=== PATIENT | male | born 1970 | race Hispanic/Latino ===

== ENCOUNTER 2018-07-23 20:41 | Inpatient (IN) | payer MEDICARE, MEDICAID ==
[~2018-07-23] VITALS: Ht 167.6 cm; Wt 61.2 kg
[~2018-07-23 20:41] MED LIST: ACETAMINOPHEN325 M1 ORAL; ACETAMINOPHEN500 MG ORAL; ASCORBIC ACID500 MG ORAL; BACTRIM DS TAB1 EAC1 ORAL; BP MED PO; CALCIUM ACETAT667 MG PO; CEPHALEXIN500 MG ORAL; CIPROFLOXA250 MG/5 M PO; CIPROFLOXACIN250 MG PO; CIPROFLOXACIN500 M2 ORAL; CLONIDINE0.1 MG GT; CLONIDINE0.1 MG PO; CREON DR 24,001 EACH PO; DEXTROSE 50%-WA50 M1 IV; DOCUSATE SODIU100 MG ORAL; FLAGYL500 MG ORAL; FUROSEMIDE40 MG ORAL; HEPARIN1000 UNIT/ SUBQ; HUMALOG100 UNIT/4 SUBQ; HUMULIN 70100 UNIT/1 SUBQ; HUMULIN R100 UNIT/1 SUBQ; IMODIUM2 MG ORAL; KEFLEX500 MG ORAL; LABETALOL H5 MG/1 M1 PO; LABETALOL HCL300 MG ORAL; LANTUS SOL100 UNIT/1 SUBQ; MEROPENEM500 MG IVPB; METRONIDAZOLE500 MG ORAL; NORCO 5-325 TA1 EACH ORAL; NORMODYNE200 MG ORAL; NOVOLOG100 UNIT/3 SUBQ; NOVOLOG100 UNITS1 SUBQ; PHENERGAN25 M1 ORAL; PRO-AMATINE2.5 MG ORAL; QUESTRAN POWDER4 GM ORAL; REGLAN5 MG ORAL; RENVELA800 MG ORAL; ROBAXIN-750750 MG PO; SALINE 10ML FLU10 ML IVF; TYLENOL EXTRA500 MG ORAL; UNOBMED; VANCOMYCIN HCL1 G1 IV; ZINC SULFATE220 M1 ORAL; ZOFRAN4 MG ORAL; [UNRECOGNIZED DRUG - REMARK]; [UNRECOGNIZED DRUG - REMARK]
[2018-07-23 21:10] VITALS: BP 123/67
--- NOTE | 2018-07-23 21:38 | Emergency Room Report ---
History of Present Illness General Chief Complaint: Dizziness Present Illness HPI 48HM poor Chinese here for "dizziness" which is really only malaise. He is MWF dialysis and he missed last three dialysis appointments b/c "I didn't have transportation." There is no: chest pain, sob, vomiting, fever, abd pain, diarrhea, trauma. He says he gets dialysis at "[facility]" and dialysis doctor is Dr. Burton. He has LUE shunt. He was admitted here in August and during that admission he eloped. PMH: ESRD, dialysis, DM, htn heart dz., noncompliance Allergies: Coded Allergies: No Known Allergies (Unverified , 02/13/15) Nursing Documentation-PMH Hx Cardiac Problems: Yes Hx Hypertension: Yes Hx Pacemaker: No Hx Asthma: No Hx COPD: No Hx Diabetes: Yes Hx Cancer: No Hx Gastrointestinal Problems: No Hx Dialysis: Yes - TUES, THURS, SAT Hx Neurological Problems: No Hx Cerebrovascular Accident: No Hx Transient Ischemic Attacks: No Hx Seizures: No Hx Peripheral Neuropathy: Yes Hx Headaches: Yes Hx Numbness: Yes Review of Systems Constitutional: Reports: see HPI, malaise, weakness Eye: Reports: no symptoms ENT: Reports: no symptoms Respiratory: Reports: no symptoms Cardiovascular: Reports: no symptoms Gastrointestinal: Reports: no symptoms Genitourinary: Reports: no symptoms Musculoskeletal: Reports: no symptoms Skin: Reports: no symptoms Psychiatric: Reports: no symptoms Neurological: Reports: no symptoms Endocrine: Reports: no symptoms Hematologic/Lymphatic: Reports: no symptoms Allergic: Reports: no symptoms All Other Systems: negative except mentioned in HPI Physical Exam Vital Signs Date Time Temp Pulse Resp B/P (MAP) Pulse Ox O2 Delivery O2 Flow Rate FiO2 07/23/18 20:59 97.7 78 16 123/67 96 Room Air Sp02 EP Interpretation: reviewed General Appearance: thin, Chronically Ill Head: normocephalic, atraumatic Eyes: bilateral eye normal inspection, bilateral eye PERRL, bilateral eye EOMI ENT: normal ENT inspection, hearing grossly normal, normal pharynx, no angioedema, normal voice, moist mucus membranes Neck: normal inspection, full range of motion, supple, no meningismus, no bony tend Respiratory: normal inspection, lungs clear, normal breath sounds, no rhonchi, no respiratory distress, no retraction, no accessory muscle use, no wheezing Cardiovascular #1: normal inspection, regular rate, rhythm, no edema, systolic murmur Gastrointestinal: normal inspection, normal bowel sounds, non tender, soft, no mass, non-distended Musculoskeletal: gait/station normal, normal range of motion, other - LUE shunt ; normal thrill Neurologic: normal inspection, alert, oriented x3, responsive, motor strength/ tone normal Psychiatric: normal inspection, judgement/insight normal, memory normal Suicide Risk Assessment: Suicidal Ideation: No Had intent to initiate attempt: No Pt's plan for suicide attempt: No Has means to complete attempt: No Skin: normal inspection, normal color, no rash, warm/dry Medical Decision Making Diagnostic Impression: Primary Impression: Hyperkalemia Additional Impressions: ESRD (end stage renal disease) on dialysis Noncompliance ER Course The patient has normal vitals with HR 80, bp 123/67. He does not look acutely ill. Will check chemistries. Not surprisingly pt. has potassium 6.5 and creatinine 22. He is receiving IV calcium here. Pt. without EKG changes (except V3 t somewhat increased. QRS duration 88 ms, p waves ok) Can tolerate chronic hyperkalemia; Dr. Haines aware, dialysis when it can be arranged. EKG Diagnostic Results EKG Time: 22:28 EP Interpretation: NSR 79, normal QRS, p wave Rhythm: NSR ST Segments: no acute changes Rhythm Strip Diag. Results Rhythm Strip Time: 21:43 EP Interpretation: yes Rhythm: NSR Last Vital Signs Date Time Temp Pulse Resp B/P (MAP) Pulse Ox O2 Delivery O2 Flow Rate FiO2 07/23/18 20:59 97.7 78 16 123/67 96 Room Air Status: unchanged Disposition: ADMITTED INPATIENT Condition: Serious Patient Instructions: Dialysis Cleve Lynn M.D. Jul 23, 2018 21:38
[2018-07-23 22:05] LABS: BASOPHILS % (AUTO) 1.2 % (0.0-2.0); EOSINOPHILS % (AUTO) 2.4 % (0.0-3.0); HEMATOCRIT 32.9 % (42.0-52.0); HEMOGLOBIN 10.5 G/DL (14.2-18.0); LYMPHOCYTES % (AUTO) 20.6 % (20.0-45.0); MEAN CORPUSCULAR VOLUME 94 FL (80-99); MONOCYTES % (AUTO) 8.4 % (1.0-10.0); NEUTROPHILS % (AUTO) 67.4 % (45.0-75.0); PLATELET COUNT 191 K/UL (150-450); RED CELL DISTRIBUTION WIDTH 13.5 % (11.6-14.8); WHITE BLOOD COUNT 8.2 K/UL (4.8-10.8)
[2018-07-23 22:12] LABS: ANION GAP 25 mmol/L (5-15); BLOOD UREA NITROGEN 133 mg/dL (7-18); CALCIUM 7.2 MG/DL (8.5-10.1); CARBON DIOXIDE 11 MMOL/L (21-32); CHLORIDE 100 MMOL/L (98-107); CREATININE 22.8 MG/DL (0.55-1.30); SODIUM 135 MMOL/L (136-145)
[2018-07-23 22:15] LABS: POTASSIUM 6.5 MMOL/L (3.5-5.1)
[2018-07-23] MEDS ORDERED: Calcium Chloride 100mg/ml Vial IVP ONE (22:30)
[2018-07-23] MEDS ORDERED: Sodium Polystyrene Sulfonate 15gm Powder ORAL ONE (22:30)
[2018-07-23] MEDS ORDERED: Insulin Human Regular 100units/ml 3ml SUBQ ONE (22:30)
[2018-07-23 23:07] VITALS: BP 106/69
[2018-07-24 00:17] VITALS: BP 132/76
[2018-07-24 01:04] VITALS: BP 129/79
[2018-07-24 01:30] VITALS: BP 135/73
[2018-07-24] MEDS ORDERED: Acetaminophen 500mg (ES) tab ORAL PRN (02:30)
[2018-07-24] MEDS ORDERED: Docusate 100mg cap ORAL PRN (02:30)
[2018-07-24] MEDS ORDERED: TYLENOL EXTRA500 MG ORAL (02:36)
[2018-07-24] MEDS ORDERED: AMBIEN5 MG ORAL (03:29)
[2018-07-24] MEDS ORDERED: Zolpidem 5mg tab ORAL PRN (03:30)
[2018-07-24] MEDS ORDERED: NovoLOG Insulin Flexpen SUBQ SCH (06:30)
[2018-07-24] MEDS ORDERED: Ascorbic Acid 500mg tab ORAL SCH (09:00)
[2018-07-24] MEDS ORDERED: Zinc Sulfate 220mg cap ORAL SCH (09:00)
[2018-07-24] MEDS ORDERED: UNOBMED (11:58)
[2018-07-24] MEDS ORDERED: Heparin Sod 1000 units/ml 10ml IV ONE (22:30)
--- NOTE | 2018-07-26 13:25 | Discharge Summary ---
Discharge Summary Discharge Summary _ DATE OF ADMISSION: 07/23/2018 DATE OF DISCHARGE: 07/24/2018. Patient signed AGAINST MEDICAL ADVICE REASON FOR ADMISSION: 48 years old male with past medical history of end-stage renal disease, on hemodialysis, diabetes, peripheral neuropathy, presented to emergency room for evaluation due to generalized malaise. Apparently patient missed the last 3 hemodialysis sessions, claiming that he didn't have transportation . He denied chest pain, shortness of breath, nausea, vomiting, abdominal pain, diarrhea. Upon evaluation vital signs were stable. Laboratory workup revealed no leukocytosis, hemoglobin 10.5 ,hematocrit 32.9. Coagulation profile was stable. Chemistry revealed hyperkalemia with potassium 6.5. Renal parameters showed evidence of uremia with BUN 133 creatinine 22.8. Blood glucose 189. Patient admitted with diagnoses of hyperkalemia, uremia likely due to noncompliance ,end-stage renal disease/ on hemodialysis with missing 3 consecutive dialysis, hypertension, diabetes mellitus. anemia of chronic kidney disease. HOSPITAL COURSE: Patient admitted to telemetry floor. Hyperkalemia was treated with Kayexalate. Hemodialysis was ordered with close monitoring of volumes and cardiorenal parameters. Blood sugar was managed with sliding scale of insulin. Blood pressure was managed with antihypertensive regimen / beta amy. Bowel regimen instituted. Pain management was addressed . Patient decided to leave against medical advice. The risks and consequences of signing AGAINST MEDICAL ADVICE were discussed with patient in detail. Patient verbalized understanding, nevertheless signed AMA form and left. FINAL DIAGNOSES: Hyperkalemia Uremia likely due to noncompliance End-stage renal disease, on hemodialysis Hypertension Diabetes mellitus Anemia of chronic kidney disease I have been assigned to dictate discharge summary for this account. I was not involved in the patient's management. Anita Brady NP Jul 26, 2018 13:25
== END 2018-07-24 04:15 | disposition left against medical advice (07) | DRG 640 ==
LOC: EMR 21:48 → EDBEDREQ 22:21 → MERGE 23:26 → 2E 23:26 → EDBEDREQ 07-24 00:37
DX: E87.5 Hyperkalemia (principal); N18.6 End stage renal disease; I13.11 Hypertensive heart and chronic kidney disease without heart failure, with stage 5 chronic kidney disease, or end stage renal disease; E11.22 Type 2 diabetes mellitus with diabetic chronic kidney disease; Z99.2 Dependence on renal dialysis; Z91.15 Patient's noncompliance with renal dialysis; G62.9 Polyneuropathy, unspecified; D63.1 Anemia in chronic kidney disease; Z79.4 Long term (current) use of insulin
CPT/HCPCS: 36415; 80048; 82962; 85025; 85610; 96374; 96375; 99285; J1815; J2405

== ENCOUNTER 2018-07-24 11:23 | Emergency (ER) | payer MEDICARE, MEDICAID ==
[~2018-07-24] VITALS: Ht 165.1 cm; Wt 56.7 kg
[~2018-07-24 11:23] MED LIST changes: +AMBIEN5 MG ORAL
[2018-07-24 11:38] VITALS: BP 118/58
[2018-07-24] MEDS ORDERED: UNOBMED (11:58)
[2018-07-24] MEDS ORDERED: Sodium Polystyrene Sulfonate 15gm Powder ORAL ONE (12:00)
[2018-07-24] MEDS ORDERED: Calcium Gluconate 1gm/10ml vial IVP ONE (12:00)
--- NOTE | 2018-07-24 12:01 | Emergency Room Report ---
History of Present Illness General Chief Complaint: Generalized Weakness Source: Patient Present Illness HPI Patient presents with generalized weakness. He's missed dialysis all week. He went to dialysis today but they refused to dialyze him and told him to come to the emergency department. He denies any chest pain or palpitations. He feels decreased appetite and some weakness generalized. No palpitations. He does not make urine. Patient was admitted yesterday, but signed out AMA. He received calcium, insulin, D50 and Kayexelate. He was supposed to get dialysis this AM. No fevers, chills, headache, NVD, bleeding, joint pain. No dyspnea/cough. Not drinking beer today. Not suicidal. Allergies: Coded Allergies: No Known Allergies (Unverified , 07/24/18) Patient History Past Medical History: see triage record Past Surgical History: other - fistula L forearm, R little toe amputation Social History: Reports: alcohol use - beer; Denies: smoking, drug use Social History Narrative with family Reviewed Nursing Documentation: PMH: Agreed; PSxH: Agreed Nursing Documentation-PMH Past Medical History: No History, Except For Hx Cardiac Problems: Yes Hx Hypertension: Yes Hx Pacemaker: No Hx Asthma: No Hx COPD: No Hx Diabetes: Yes Hx Cancer: No Hx Gastrointestinal Problems: No Hx Dialysis: Yes - , , WED Hx Neurological Problems: No Hx Cerebrovascular Accident: No Hx Transient Ischemic Attacks: No Hx Seizures: No Hx Peripheral Neuropathy: Yes Hx Headaches: Yes Hx Numbness: Yes Review of Systems All Other Systems: negative except mentioned in HPI Physical Exam Vital Signs Date Time Temp Pulse Resp B/P (MAP) Pulse Ox O2 Delivery O2 Flow Rate FiO2 07/24/18 11:28 97.9 88 16 123/69 96 Room Air Sp02 EP Interpretation: reviewed, normal General Appearance: no apparent distress, Chronically Ill Head: normocephalic Eyes: bilateral eye PERRL, bilateral eye conjunctivae pale ENT: moist mucus membranes Neck: supple Respiratory: no respiratory distress, decreased breath sounds, rales Cardiovascular #1: regular rate, rhythm, JVD - and distended scalp veins Cardiovascular #2: 2+ radial (L) - fistula forearm good thrill Gastrointestinal: normal inspection, normal bowel sounds, non tender, no mass, non-distended Musculoskeletal: back normal, gait/station normal, normal range of motion, no calf tenderness Neurologic: alert, oriented x3, motor strength/tone normal, DTRs symmetric, sensory intact, cerebellar normal, normal gait, speech normal Psychiatric: mood/affect normal Skin: normal inspection, warm/dry, other - sallo Medical Decision Making Diagnostic Impression: Primary Impression: Hyperkalemia Additional Impressions: ESRD (end stage renal disease) on dialysis Non-compliance Metabolic acidosis DM (diabetes mellitus) Qualified Codes: E11.8 - Type 2 diabetes mellitus with unspecified complications; 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 DDX; hyperkalemia, acidosis, AMI, CHF/pulmonary edema amongst others. Evaluation with EKG, CXR, labs. High probability of continued hyperkalemia, will begin treatment with calcium and Kayexelate. EKG no injury, but slight peaked T waves. CXR pulm HTN. Labs with high potassium, low bicarb and CRF with elevated BUN. Glucose 172. Admit telemetry for dialysis. Discussed with Dr. Varner. Patient refusing to stay in the hospital. He understands he might . States he doesn't want to stay in hospital and wants to follow up in his MD's office tomorrow. (Consideration of sedation and restraints, but OX3 at this time and understands potential consequences of leaving.) Patient left ED AMA. Call Dr. Varner again. Laboratory Tests Test 07/24/18 12:00 White Blood Count 8.1 K/UL (4.8-10.8) Red Blood Count 3.20 M/UL (4.70-6.10) L Hemoglobin 9.5 G/DL (14.2-18.0) L Hematocrit 30.0 % (42.0-52.0) L Mean Corpuscular Volume 93 FL (80-99) Mean Corpuscular Hemoglobin 29.6 PG (27.0-31.0) Mean Corpuscular Hemoglobin Concent 31.7 G/DL (32.0-36.0) L Red Cell Distribution Width 13.3 % (11.6-14.8) Platelet Count 159 K/UL (150-450) Mean Platelet Volume 7.1 FL (6.5-10.1) Neutrophils (%) (Auto) 81.2 % (45.0-75.0) H Lymphocytes (%) (Auto) 10.7 % (20.0-45.0) L Monocytes (%) (Auto) 7.0 % (1.0-10.0) Eosinophils (%) (Auto) 0.4 % (0.0-3.0) Basophils (%) (Auto) 0.7 % (0.0-2.0) Prothrombin Time 10.9 SEC (9.30-11.50) Prothrombin Time INR 1.0 (0.9-1.1) PTT 34 SEC (23-33) H Sodium Level 138 MMOL/L (136-145) Potassium Level 6.1 MMOL/L (3.5-5.1) *H Chloride Level 101 MMOL/L (98-107) Carbon Dioxide Level 9 MMOL/L (21-32) *L Anion Gap 28 mmol/L (5-15) H Blood Urea Nitrogen 135 mg/dL (7-18) H Creatinine 23.2 MG/DL (0.55-1.30) H Estimate Glomerular Filtration Rate 2.1 mL/min (>60) Glucose Level 172 MG/DL (74-106) H Calcium Level 7.5 MG/DL (8.5-10.1) L Total Bilirubin 0.5 MG/DL (0.2-1.0) Aspartate Amino Transferase (AST) 9 U/L (15-37) L Alanine Aminotransferase (ALT) 33 U/L (12-78) Alkaline Phosphatase 155 U/L (46-116) H Total Creatine Kinase 287 U/L (26-308) Troponin I 0.006 ng/mL (0.000-0.056) Pro-B-Type Natriuretic Peptide > 08192 pg/mL (0-125) H Total Protein 8.5 G/DL (6.4-8.2) H Albumin 3.3 G/DL (3.4-5.0) L Globulin 5.2 g/dL Albumin/Globulin Ratio 0.6 (1.0-2.7) L Serum Alcohol < 3 mg/dL EKG Diagnostic Results Rate: normal Rhythm: NSR ST Segments: no acute changes - slight peaked T waves Rhythm Strip Diag. Results EP Interpretation: yes Rhythm: NSR, no PVC's, no ectopy Chest X-Ray Diagnostic Results Chest X-Ray Diagnostic Results : Chest X-Ray Ordered: Yes # of Views/Limited/Complete: 1 View Indication: Other EP Interpretation: Yes Interpretation: no effusion, no pneumothorax, other - pulm htn/chf Impression: Other Electronically Signed by: Nile Frazier MD Last Vital Signs Date Time Temp Pulse Resp B/P (MAP) Pulse Ox O2 Delivery O2 Flow Rate FiO2 07/24/18 14:30 98.5 76 17 132/80 99 Room Air Status: improved Disposition: AGAINST MEDICAL ADVICE Condition: Serious Nile Frazier MD Jul 24, 2018 12:01
[2018-07-24 12:24] LABS: BASOPHILS % (AUTO) 0.7 % (0.0-2.0); EOSINOPHILS % (AUTO) 0.4 % (0.0-3.0); HEMOGLOBIN 9.5 G/DL (14.2-18.0); LYMPHOCYTES % (AUTO) 10.7 % (20.0-45.0); MEAN CORPUSCULAR VOLUME 93 FL (80-99); NEUTROPHILS % (AUTO) 81.2 % (45.0-75.0); PLATELET COUNT 159 K/UL (150-450); RED CELL DISTRIBUTION WIDTH 13.3 % (11.6-14.8); WHITE BLOOD COUNT 8.1 K/UL (4.8-10.8)
[2018-07-24 12:47] LABS: ALANINE AMINOTRANSFERASE 33 U/L (12-78); ALBUMIN 3.3 G/DL (3.4-5.0); ALBUMIN/GLOBULIN RATIO 0.6 (1.0-2.7); ALKALINE PHOSPHATASE 155 U/L (46-116); ANION GAP 28 mmol/L (5-15); ASPARTATE AMINO TRANSFERASE 9 U/L (15-37); BILIRUBIN,TOTAL 0.5 MG/DL (0.2-1.0); BLOOD UREA NITROGEN 135 mg/dL (7-18); CALCIUM 7.5 MG/DL (8.5-10.1); CHLORIDE 101 MMOL/L (98-107); CREATINE KINASE 287 U/L (26-308); CREATININE 23.2 MG/DL (0.55-1.30); SODIUM 138 MMOL/L (136-145)
[2018-07-24 13:03] LABS: POTASSIUM 6.1 MMOL/L (3.5-5.1)
[2018-07-24 13:04] LABS: CARBON DIOXIDE 9 MMOL/L (21-32)
[2018-07-24 13:40] VITALS: BP 125/71
[2018-07-24 14:30] VITALS: BP 132/80
[2018-07-24] MEDS ORDERED: Nitroglycerin Subl 0.4mg tab SL PRN (17:30)
[2018-07-24] MEDS ORDERED: Milk of Magnesia 30ml Ud ORAL PRN (17:30)
[2018-07-24] MEDS ORDERED: Acetaminophen 650 MG SUPP RECTAL PRN (17:30)
[2018-07-24] MEDS ORDERED: Albuterol/Ipratropium 3ml neb HHN PRN (17:30)
[2018-07-24] MEDS ORDERED: Docusate 100mg cap ORAL SCH (21:00)
[2018-07-24] MEDS ORDERED: Heparin 5000 units/ml inj SUBQ SCH (22:00)
[2018-07-25] MEDS ORDERED: Heparin Sod 1000 units/ml 10ml IV PRN (06:00)
--- NOTE | 2018-07-25 09:14 | Diagnostic Imaging Report ---
Indication: Chest pain Technique: One view of the chest Comparison: 07/05/2016 Findings: The heart is borderline enlarged. There is perihilar interstitial edema and enlargement of the central pulmonary vessels. The pleural spaces are grossly clear. No focal airspace consolidation Impression: Borderline cardiomegaly with perihilar interstitial edema
== END 2018-07-24 14:30 | disposition other institution (70) ==
LOC: EDBEDREQ 12:06 → EMR 12:10 → MERGE 12:10 → EDBEDREQ 14:13 → EMR 14:30 → CANBEDREQ 14:46
DX: E87.5 Hyperkalemia (principal); E87.2 Acidosis; I12.0 Hypertensive chronic kidney disease with stage 5 chronic kidney disease or end stage renal disease; E11.22 Type 2 diabetes mellitus with diabetic chronic kidney disease; N18.6 End stage renal disease; Z99.2 Dependence on renal dialysis; Z91.15 Patient's noncompliance with renal dialysis
CPT/HCPCS: 36415; 71045; 80053; 82550; 82962; 83880; 84484; 85025; 85610; 85730; 87081; 93005; 96374; 99284; G0480; J0610; 80329

== ENCOUNTER 2018-07-25 01:00 | Inpatient (IN) | payer MEDICARE, MEDICAID ==
[~2018-07-25] VITALS: Ht 165.1 cm; Wt 56.7 kg
--- NOTE | 2018-07-25 01:22 | Emergency Room Report ---
History of Present Illness General Chief Complaint: Vomiting Source: Patient, Medical Record Present Illness HPI Is a 48-year-old male with history of hypertension, renal failure on hemodialysis. He presents with chief complaint of weakness and vomiting. He has miss over a week worth of dialysis. He was here yesterday and was admitted but signed out AMA from the ER. He claimed that he cant go dialysis because of transportation. Last Wednesday it was raining. Patient denies any fever chills. No chest pain. No vomiting. Has weakness. Allergies: Coded Allergies: No Known Allergies (Unverified , 07/24/18) Patient History Past Medical History: see triage record, old chart reviewed, HTN, renal disease , dialysis Past Surgical History: other Pertinent Family History: none Social History: Denies: smoking Immunizations: other Reviewed Nursing Documentation: PMH: Agreed; PSxH: Agreed Nursing Documentation-PMH Past Medical History: No History, Except For Hx Cardiac Problems: Yes Hx Hypertension: Yes Hx Pacemaker: No Hx Asthma: No Hx COPD: No Hx Diabetes: Yes Hx Cancer: No Hx Gastrointestinal Problems: No Hx Dialysis: Yes - , , WED Hx Neurological Problems: No Hx Cerebrovascular Accident: No Hx Transient Ischemic Attacks: No Hx Seizures: No Hx Peripheral Neuropathy: Yes Hx Headaches: Yes Hx Numbness: Yes Review of Systems Constitutional: Reports: malaise, weakness Eye: Denies: eye pain, blurred vision ENT: Denies: ear pain, nose congestion, throat swelling Respiratory: Denies: cough, shortness of breath Cardiovascular: Denies: chest pain, palpitations Gastrointestinal: Denies: abdominal pain, diarrhea, nausea, vomiting Musculoskeletal: Denies: back pain, joint pain Skin: Denies: rash Neurological: Denies: headache, numbness Endocrine: Denies: increased thirst, increased urine Hematologic/Lymphatic: Denies: easy bruising All Other Systems: negative except mentioned in HPI Physical Exam Vital Signs Date Time Temp Pulse Resp B/P (MAP) Pulse Ox O2 Delivery O2 Flow Rate FiO2 07/25/18 01:03 98.8 88 16 117/67 96 Room Air vitals unremarkable Sp02 EP Interpretation: reviewed, normal General Appearance: well appearing, no apparent distress, alert Head: normocephalic, atraumatic Eyes: bilateral eye PERRL, bilateral eye EOMI ENT: hearing grossly normal, normal pharynx Neck: full range of motion, supple, no meningismus Respiratory: chest non-tender, lungs clear, normal breath sounds Cardiovascular #1: regular rate, rhythm, no murmur Gastrointestinal: normal bowel sounds, non tender, no mass, no organomegaly, no bruit, non-distended Musculoskeletal: back normal, gait/station normal, normal range of motion Psychiatric: mood/affect normal Skin: warm/dry Medical Decision Making Diagnostic Impression: Primary Impression: Uremia Additional Impressions: Non-compliance Metabolic acidosis ESRD on hemodialysis ER Course Patient presents with severe uremia secondary to his renal failure. Is also secondary to is noncompliant. Luckily, blood pressure stable and he is not hyperkalemic. Also not hypoxic. I discussed the case with Dr. Varner who will admit. Lab Results Impression labs with severe metabolic acidosis and uremia EKG Diagnostic Results Rate: normal Rhythm: NSR ST Segments: other - Nonspecific changes Rhythm Strip Diag. Results Rhythm Strip Time: 01:21 EP Interpretation: yes Rate: 80 Rhythm: NSR, no PVC's, no ectopy Chest X-Ray Diagnostic Results Chest X-Ray Diagnostic Results : Chest X-Ray Ordered: Yes # of Views/Limited/Complete: 1 View Indication: Shortness of Breath EP Interpretation: Yes Interpretation: no consolidation, no pneumothorax, other - CM with vasc congestion Impression: Other - CM with chf Electronically Signed by: Denilson Martin MD Last Vital Signs Date Time Temp Pulse Resp B/P (MAP) Pulse Ox O2 Delivery O2 Flow Rate FiO2 07/25/18 01:03 98.8 88 16 117/67 96 Room Air Status: improved Disposition: ADMITTED INPATIENT Condition: Serious Denilson Martin MD Jul 25, 2018 01:22
[2018-07-25 01:31] LABS: BASOPHILS % (AUTO) 0.9 % (0.0-2.0); HEMATOCRIT 29.2 % (42.0-52.0); HEMOGLOBIN 9.3 G/DL (14.2-18.0); LYMPHOCYTES % (AUTO) 10.6 % (20.0-45.0); MEAN CORPUSCULAR VOLUME 93 FL (80-99); MONOCYTES % (AUTO) 6.8 % (1.0-10.0); NEUTROPHILS % (AUTO) 81.8 % (45.0-75.0); PLATELET COUNT 163 K/UL (150-450); RED BLOOD COUNT 3.14 M/UL (4.70-6.10); RED CELL DISTRIBUTION WIDTH 13.6 % (11.6-14.8); WHITE BLOOD COUNT 9.3 K/UL (4.8-10.8)
[2018-07-25 01:46] LABS: ANION GAP 29 mmol/L (5-15); BLOOD UREA NITROGEN 137 mg/dL (7-18); CALCIUM 6.9 MG/DL (8.5-10.1); CARBON DIOXIDE 11 MMOL/L (21-32); CHLORIDE 100 MMOL/L (98-107); CREATININE 26.1 MG/DL (0.55-1.30); POTASSIUM 4.7 MMOL/L (3.5-5.1); SODIUM 140 MMOL/L (136-145)
[2018-07-25 01:59] LABS: ALANINE AMINOTRANSFERASE 30 U/L (12-78); ALBUMIN 3.3 G/DL (3.4-5.0); ALBUMIN/GLOBULIN RATIO 0.7 (1.0-2.7); ALKALINE PHOSPHATASE 155 U/L (46-116); ASPARTATE AMINO TRANSFERASE 7 U/L (15-37); BILIRUBIN,TOTAL 0.6 MG/DL (0.2-1.0); CREATINE KINASE 285 U/L (26-308)
[2018-07-25 02:15] VITALS: BP 122/66
[2018-07-25] MEDS ORDERED: Docusate 100mg cap ORAL PRN (05:45)
[2018-07-25] MEDS ORDERED: Zolpidem 5mg tab ORAL PRN (05:45)
[2018-07-25 08:00] VITALS: BP 109/54
[2018-07-25] MEDS: NovoLOG Insulin Flexpen SUBQ SCH ×4 (08:18→20:50)
[2018-07-25] MEDS: Ascorbic Acid 500mg tab ORAL SCH (09:00)
[2018-07-25] MEDS: Zinc Sulfate 220mg cap ORAL SCH (09:00)
--- NOTE | 2018-07-25 11:00 | Diagnostic Imaging Report ---
Indication: Shortness of breath Technique: One view of the chest Comparison: 07/24/2018 Findings: The heart is borderline enlarged. Again demonstrated is bilateral interstitial and airspace edema, which appears slightly worse than on the prior study. There is slight blunting of the right costophrenic sulcus, could indicate a small pleural effusion. The left pleural space is grossly clear. Impression: Worsening bilateral interstitial and airspace edema versus infiltrates, over one
[2018-07-25 12:02] VITALS: BP 147/74
--- NOTE | 2018-07-25 15:00 | History and Physical Report ---
DATE OF ADMISSION: 07/25/2018 CHIEF COMPLAINT: Shortness of breath. HISTORY OF PRESENT ILLNESS: This is a 48-year-old male, who is extremely noncompliant with his outpatient dialysis therapy. The patient missed by now almost 2 weeks of hemodialysis therapy. The patient was supposed to go to this hospital to be admitted. He did go to the emergency department. He was admitted and then left against medical advice. We called him. He was admitted again and left against medical advice, and this is the third time in succession that the patient is admitted and eventually he is getting his dialysis now at the time of dictation. The patient does not give a reasonable explanation of why he is doing it. PAST MEDICAL HISTORY: 1. End-stage renal failure due to diabetic nephropathy. 2. Type 2 diabetes mellitus. 3. 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 4. Orthostatic hypotension due to diabetic autonomic insufficiency. 5. History of acute osteomyelitis, right foot. 6. Anemia of chronic kidney disease. 7. History of noncompliance. 8. Diabetic gastroparesis. 9. Severe secondary hyperparathyroidism. HOME MEDICATIONS: Tylenol p.r.n., ascorbic acid, PhosLo, clonidine p.r.n., sodium docusate, NovoLog before meals, Lantus, labetalol, pancreatic enzymes, Reglan, Flagyl, midodrine, Zofran, zinc sulfate. ALLERGIES: No known drug allergies. FAMILY HISTORY: Unremarkable. SOCIAL HISTORY: The patient lives at home with his family. HABITS: He is nonsmoker and nondrinker. There is no history of illicit drug abuse. REVIEW OF SYSTEMS: HEENT: He is almost legally blind. ENDOCRINE: Significant for multiorgan type 2 diabetes mellitus with diabetic retinopathy, neuropathy, nephropathy, gastroparesis, vasculopathy. CARDIOVASCULAR: Denies chest pain or palpitations. GENITOURINARY: He has nocturia times 2-3. NEUROLOGICAL: He has severe peripheral neuropathy. There is no history of stroke. PHYSICAL EXAMINATION: GENERAL: This is a middle-aged male, who looks older than his age. The patient looks chronically ill and cachectic. VITAL SIGNS: Blood pressure 109/54, pulse 83, respirations 19, temperature 98.3. HEENT: Head is normocephalic and atraumatic. He has very poor vision. NECK: Supple. Trachea midline. There is no lymphadenopathy or thyromegaly. LUNGS: Clear to auscultation and percussion. HEART: Regular rate and rhythm. He has grade 2 systolic ejection murmur. ABDOMEN: Soft and nontender. Bowel sounds were active. EXTREMITIES: No clubbing, cyanosis, or edema. He has a left upper arm AV fistula. NEUROLOGIC: He is alert and oriented x4. Cranial nerves II through XII intact. LABORATORY AND ANCILLARY DATA: CBC, hematocrit 29.2, otherwise within normal limits. Serum chemistry, electrolytes within normal limits. CO2 level 11, very low. BUN 137, creatinine 26.1, glucose 193, alkaline phosphatase 155. ASSESSMENT: 1. Uremia due to noncompliance. 2. End-stage renal failure due to diabetic nephropathy. 3. Type 2 diabetes mellitus. 4. 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 5. Orthostatic hypotension due to diabetic autonomic insufficiency. 6. History of acute osteomyelitis, right foot. 7. Anemia of chronic kidney disease. 8. History of noncompliance. 9. Diabetic gastroparesis. 10. Severe secondary hyperparathyroidism. PLAN: 1. Wyax-ly-tprd long hemodialysis sessions. 2. Obtain psychiatric evaluation to rule out depression. Ann Varner M.D. DR: Swapnil JOB#: [id number] CC:
[2018-07-25 16:00] VITALS: BP 137/69
[2018-07-25 20:00] VITALS: BP 116/65
--- NOTE | 2018-07-25 22:05 | Consultation ---
History of Present Illness General Chief Complaint: Vomiting Present Illness HPI 48-year-old male, who is noncompliant with his outpatient dialysis therapy. the pt is mostly sleep during the day. the pt was Allergies: Coded Allergies: No Known Allergies (Unverified , 07/24/18) Medication History Scheduled Ascorbic Acid* (Ascorbic Acid*), 500 MG ORAL DAILY, (Reported) Ciprofloxacin Hcl* (Ciprofloxacin Hcl*), 500 MG ORAL Q12H Clonidine HCl (Clonidine HCl), 0.1 MG PO Q6HR, (Reported) Insulin Glargine (Lantus), 10 SUBQ BEDTIME, (Reported) Insulin Lispro (Humalog), 10 SUBQ BID, (Reported) Insulin Lispro (Humalog), 10 SUBQ BID, (Reported) Labetalol Hcl* (Normodyne*), 300 MG ORAL EVERY 12 HOURS, (Reported) Lipase/Protease/Amylase (Creon Dr 24,000 Units Capsule), 2 EACH PO TID, ( Reported) Metronidazole* (Flagyl*), 500 MG ORAL Q8HR, (Reported) Midodrine (Midodrine HCl), Unknown Dose ORAL BID, (Reported) Zinc Sulfate (Zinc Sulfate*), 220 MG ORAL DAILY, (Reported) Scheduled PRN Acetaminophen* (Tylenol Extra Strength*), 500 MG ORAL Q6H PRN for Mild Pain/ Temp > 100.5, (Reported) Clonidine HCl (Clonidine HCl), 0.1 MG GT Q6HR PRN for For High Blood Pressure, ( Reported) Docusate Sodium* (Docusate Sodium*), 100 MG ORAL Q12HR PRN for Constipation, ( Reported) Insulin Aspart* (Novolog*), 0 SUBQ BEFORE MEALS AND HS PRN for Per rx protocol, (Reported) Metoclopramide Hcl* (Reglan*), 5 MG ORAL EVERY 6 HOURS PRN for nausea vomiting Ondansetron (Zofran), 4 MG ORAL Q6H PRN for Nausea & Vomiting Zolpidem Tartrate* (Ambien*), 5 MG ORAL BEDTIME PRN for Insomnia, (Reported) Miscellaneous Medications Calcium Acetate (Calcium Acetate), 2,001 MG PO, (Reported) Unable to Obtain Medications (Unable To Obtain Meds), (Reported) ["BP pill"], Unknown Dose, (Reported) ["insulin"], Unknown Dose, (Reported) Patient History Healthcare decision maker Resuscitation status Advanced Directive on File No Physical Exam Last 24 Hour Vital Signs Date Time Temp Pulse Resp B/P (MAP) Pulse Ox O2 Delivery O2 Flow Rate FiO2 07/25/18 21:00 Room Air 07/25/18 20:51 92 116/65 07/25/18 20:00 99.1 91 20 116/65 (82) 93 07/25/18 20:00 92 07/25/18 17:04 137/69 07/25/18 16:00 98.1 94 19 137/69 (91) 94 07/25/18 15:20 91 07/25/18 12:02 97.7 87 20 147/74 (98) 98 07/25/18 11:45 147/74 07/25/18 11:43 88 07/25/18 09:00 83 109/54 07/25/18 09:00 Room Air 07/25/18 08:45 82 07/25/18 08:00 98.3 83 19 109/54 (72) 92 07/25/18 06:34 122/66 07/25/18 04:00 Room Air 07/25/18 04:00 84 07/25/18 03:35 98.8 87 16 122/66 96 Room Air 07/25/18 02:15 98.8 87 16 122/66 96 Room Air 07/25/18 01:15 88 16 Room Air 07/25/18 01:03 98.8 88 16 117/67 96 Room Air Intake and Output 07/24/18 07/25/18 19:00 07:00 Intake Total 100 ml Output Total 100 ml Balance 0 ml Intake Oral 100 ml Output Emesis 100 ml Laboratory Tests Test 07/25/18 01:15 White Blood Count 9.3 K/UL (4.8-10.8) Red Blood Count 3.14 M/UL (4.70-6.10) L Hemoglobin 9.3 G/DL (14.2-18.0) L Hematocrit 29.2 % (42.0-52.0) L Mean Corpuscular Volume 93 FL (80-99) Mean Corpuscular Hemoglobin 29.7 PG (27.0-31.0) Mean Corpuscular Hemoglobin Concent 31.9 G/DL (32.0-36.0) L Red Cell Distribution Width 13.6 % (11.6-14.8) Platelet Count 163 K/UL (150-450) Mean Platelet Volume 7.9 FL (6.5-10.1) Neutrophils (%) (Auto) 81.8 % (45.0-75.0) H Lymphocytes (%) (Auto) 10.6 % (20.0-45.0) L Monocytes (%) (Auto) 6.8 % (1.0-10.0) Eosinophils (%) (Auto) 0.0 % (0.0-3.0) Basophils (%) (Auto) 0.9 % (0.0-2.0) Sodium Level 140 MMOL/L (136-145) Potassium Level 4.7 MMOL/L (3.5-5.1) Chloride Level 100 MMOL/L (98-107) Carbon Dioxide Level 11 MMOL/L (21-32) L Anion Gap 29 mmol/L (5-15) H Blood Urea Nitrogen 137 mg/dL (7-18) H Creatinine 26.1 MG/DL (0.55-1.30) H Estimat Glomerular Filtration Rate 1.9 mL/min (>60) Glucose Level 193 MG/DL (74-106) H Hemoglobin A1c 5.3 % (4.3-6.0) Calcium Level 6.9 MG/DL (8.5-10.1) L Total Bilirubin 0.6 MG/DL (0.2-1.0) Aspartate Amino Transf (AST/SGOT) 7 U/L (15-37) L Alanine Aminotransferase (ALT/SGPT) 30 U/L (12-78) Alkaline Phosphatase 155 U/L (46-116) H Total Creatine Kinase 285 U/L (26-308) Creatine Kinase MB 9.0 NG/ML (0.0-3.6) H Creatine Kinase MB Relative Index 3.1 Troponin I 0.008 ng/mL (0.000-0.056) Total Protein 8.3 G/DL (6.4-8.2) H Albumin 3.3 G/DL (3.4-5.0) L Globulin 5.0 g/dL Albumin/Globulin Ratio 0.7 (1.0-2.7) L Microbiology Date/Time Source Procedure Growth Status 07/25/18 02:45 Rectum Received Height (Feet): 5 Height (Inches): 5.00 Weight (Pounds): 130 Medications Current Medications Medications (Trade) Dose Ordered Sig/Juan Route PRN Reason Start Time Stop Time Status Last Admin Dose Admin Acetaminophen (Tylenol) 500 mg Q6H PRN ORAL Mild Pain/Temp > 100.5 07/25/18 05:45 08/24/18 05:44 Ascorbic Acid (Vitamin C) 500 mg DAILY ORAL 07/25/18 09:00 08/24/18 08:59 Cinacalcet (Sensipar) 60 mg DAILY ORAL 07/26/18 09:00 08/25/18 08:59 Clonidine HCl (Catapres Tab) 0.1 mg Q6H PRN ORAL For High Blood Pressure 07/25/18 06:30 08/24/18 06:29 Clonidine HCl (Catapres Tab) 0.1 mg Q6HR ORAL 07/25/18 06:00 08/24/18 05:59 07/25/18 17:04 Dextrose (Dextrose 50%) 25 ml Q30M PRN IV Hypoglycemia 07/25/18 05:45 08/24/18 05:44 Dextrose (Dextrose 50%) 50 ml Q30M PRN IV Hypoglycemia 07/25/18 05:45 08/24/18 05:44 Docusate Sodium (Colace) 100 mg Q12H PRN ORAL Constipation 07/25/18 05:45 08/24/18 05:44 Heparin Sodium (Porcine) (Heparin Sod 1000 units/ml 10ml) 2,000 unit ONCE IV 07/26/18 07:15 07/26/18 23:59 Heparin Sodium (Porcine) (Heparin Sod 1000 units/ml 10ml) 2,000 unit ONCE IV 07/26/18 09:30 07/31/18 23:59 Insulin Aspart (NovoLOG) BEFORE MEALS AND HS SUBQ 07/25/18 06:30 08/24/18 06:29 07/25/18 08:18 Labetalol HCl (Normodyne) 300 mg EVERY 12 HOURS ORAL 07/25/18 09:00 08/24/18 08:59 Metoclopramide HCl (Reglan) 5 mg Q6H PRN ORAL nausea vomiting 07/25/18 05:45 08/24/18 05:44 07/25/18 20:51 Ondansetron HCl (Zofran) 4 mg Q6H PRN ORAL Nausea & Vomiting 07/25/18 05:45 08/24/18 05:44 07/25/18 16:12 Sodium Chloride 1,000 ml @ 500 mls/hr Q2H PRN IVLG sbp<90 during hd 07/26/18 07:02 07/26/18 23:59 Sodium Chloride 1,000 ml @ 500 mls/hr Q2H PRN IVLG sbp<90 during hd 07/26/18 09:27 07/26/18 23:59 Zinc Sulfate (Zinc Sulfate) 220 mg DAILY ORAL 07/25/18 09:00 08/24/18 08:59 Zolpidem Tartrate (Ambien) 5 mg BEDTIME PRN ORAL Insomnia 07/25/18 05:45 08/01/18 05:44 Bayron Tim MD Jul 25, 2018 22:05
[2018-07-26] VITALS: BP 149/60
[2018-07-26] MEDS: Acetaminophen 500mg (ES) tab ORAL PRN ×2 (00:49→20:08)
[2018-07-26 04:00] VITALS: BP 130/69
[2018-07-26] MEDS: NovoLOG Insulin Flexpen SUBQ SCH ×4 (06:29→21:00)
[2018-07-26 07:07] LABS: BASOPHILS % (AUTO) 0.5 % (0.0-2.0); HEMATOCRIT 28.4 % (42.0-52.0); HEMOGLOBIN 9.6 G/DL (14.2-18.0); LYMPHOCYTES % (AUTO) 10.5 % (20.0-45.0); MEAN CORPUSCULAR VOLUME 93 FL (80-99); MONOCYTES % (AUTO) 8.1 % (1.0-10.0); NEUTROPHILS % (AUTO) 80.9 % (45.0-75.0); PLATELET COUNT 196 K/UL (150-450); RED BLOOD COUNT 3.06 M/UL (4.70-6.10); RED CELL DISTRIBUTION WIDTH 13.6 % (11.6-14.8); WHITE BLOOD COUNT 11.1 K/UL (4.8-10.8)
[2018-07-26] MEDS ORDERED: Heparin Sod 1000 units/ml 10ml IV SCH (07:15)
[2018-07-26 07:20] LABS: ALANINE AMINOTRANSFERASE 25 U/L (12-78); ALBUMIN 2.9 G/DL (3.4-5.0); ALBUMIN/GLOBULIN RATIO 0.6 (1.0-2.7); ALKALINE PHOSPHATASE 146 U/L (46-116); ANION GAP 25 mmol/L (5-15); ASPARTATE AMINO TRANSFERASE 8 U/L (15-37); BILIRUBIN,TOTAL 0.6 MG/DL (0.2-1.0); BLOOD UREA NITROGEN 90 mg/dL (7-18); CALCIUM 7.1 MG/DL (8.5-10.1); CARBON DIOXIDE 17 MMOL/L (21-32); CHLORIDE 98 MMOL/L (98-107); CREATININE 18.1 MG/DL (0.55-1.30); PHOSPHORUS 12.7 MG/DL (2.5-4.9); POTASSIUM 3.4 MMOL/L (3.5-5.1); SODIUM 140 MMOL/L (136-145)
[2018-07-26 08:00] VITALS: BP 132/71
[2018-07-26] MEDS: Sensipar 30mg Tab ORAL SCH (08:52)
[2018-07-26] MEDS: Ascorbic Acid 500mg tab ORAL SCH (08:53)
[2018-07-26] MEDS: Zinc Sulfate 220mg cap ORAL SCH (08:53)
[2018-07-26] MEDS: Heparin Sod 1000 units/ml 10ml IV SCH (09:30)
[2018-07-26 12:00] VITALS: BP 118/65
--- NOTE | 2018-07-26 13:44 | Nephrology Progress Note ---
Assessment/Plan Plan Uremia due to noncompliance - HD today. DW patient. Seen by Psych. Subjective Subjective No new c/o Objective Objective Last 24 Hour Vital Signs Date Time Temp Pulse Resp B/P (MAP) Pulse Ox O2 Delivery O2 Flow Rate FiO2 07/26/18 12:08 118/65 07/26/18 12:00 79 07/26/18 12:00 98.6 82 20 118/65 (82) 95 07/26/18 09:00 Room Air 07/26/18 08:53 79 132/71 07/26/18 08:00 98.5 79 20 132/71 (91) 94 07/26/18 08:00 78 07/26/18 06:25 130/69 07/26/18 04:00 98.7 82 20 130/69 (89) 94 07/26/18 04:00 81 07/26/18 01:19 100.6 07/26/18 00:48 149/60 07/26/18 00:00 100.6 91 20 149/60 (89) 96 07/26/18 00:00 89 07/25/18 21:00 Room Air 07/25/18 20:51 92 116/65 07/25/18 20:00 99.1 91 20 116/65 (82) 93 07/25/18 20:00 92 07/25/18 17:04 137/69 07/25/18 16:00 98.1 94 19 137/69 (91) 94 07/25/18 15:20 91 Intake and Output 07/25/18 07/26/18 19:00 07:00 Intake Total 3075 ml 60 ml Balance 3075 ml 60 ml Intake Oral 75 ml 60 ml Hemodialysis 3000 ml # Voids 20 Laboratory Tests 07/26/18 05:35: White Blood Count 11.1H, Red Blood Count 3.06L, Hemoglobin 9.6L, Hematocrit 28.4L, Mean Corpuscular Volume 93, Mean Corpuscular Hemoglobin 31.3H, Mean Corpuscular Hemoglobin Concent 33.7, Red Cell Distribution Width 13.6, Platelet Count 196, Mean Platelet Volume 7.8, Neutrophils (%) (Auto) 80.9H, Lymphocytes ( %) (Auto) 10.5L, Monocytes (%) (Auto) 8.1, Eosinophils (%) (Auto) 0.0, Basophils (%) (Auto) 0.5, Sodium Level 140, Potassium Level 3.4L, Chloride Level 98, Carbon Dioxide Level 17L, Anion Gap 25H, Blood Urea Nitrogen 90H, Creatinine 18.1H, Estimat Glomerular Filtration Rate 2.8, Glucose Level 148H, Calcium Level 7.1L, Calcium (Send out) [Pending], Phosphorus Level 12.7H, Total Bilirubin 0.6, Aspartate Amino Transf (AST/SGOT) 8L, Alanine Aminotransferase ( ALT/SGPT) 25, Alkaline Phosphatase 146H, Total Protein 8.1, Albumin 2.9L, Globulin 5.2, Albumin/Globulin Ratio 0.6L, Parathyroid Hormone (Intact) [Pending ] Height (Feet): 5 Height (Inches): 5.00 Weight (Pounds): 128 Objective Poor vision. CV RR Lungs CTA Abd SNT. BS + E No CCE Ann Varner MD Jul 26, 2018 13:44
[2018-07-26 16:00] VITALS: BP 114/53
--- NOTE | 2018-07-26 16:12 | General Progress Note ---
Assessment/Plan Assessment/Plan MDD severe not a dts/dto lexapro 10mg qam the pt may not leave ama he has cognitive impairment Subjective Date patient seen: Jul 26, 2018 Neurologic/Psychiatric: Reports: anxiety, depressed, emotional problems Allergies: Coded Allergies: No Known Allergies (Unverified , 01/04/14) Subjective the pt was sleep again and low energy Objective Last 24 Hour Vital Signs Date Time Temp Pulse Resp B/P (MAP) Pulse Ox O2 Delivery O2 Flow Rate FiO2 07/26/18 12:08 118/65 07/26/18 12:00 79 07/26/18 12:00 98.6 82 20 118/65 (82) 95 07/26/18 09:00 Room Air 07/26/18 08:53 79 132/71 07/26/18 08:00 98.5 79 20 132/71 (91) 94 07/26/18 08:00 78 07/26/18 06:25 130/69 07/26/18 04:00 98.7 82 20 130/69 (89) 94 07/26/18 04:00 81 07/26/18 01:19 100.6 07/26/18 00:48 149/60 07/26/18 00:00 100.6 91 20 149/60 (89) 96 07/26/18 00:00 89 07/25/18 21:00 Room Air 07/25/18 20:51 92 116/65 07/25/18 20:00 99.1 91 20 116/65 (82) 93 07/25/18 20:00 92 07/25/18 17:04 137/69 Intake and Output 07/25/18 07/26/18 19:00 07:00 Intake Total 3075 ml 60 ml Balance 3075 ml 60 ml Intake Oral 75 ml 60 ml Hemodialysis 3000 ml # Voids 20 Laboratory Tests 07/26/18 05:35: White Blood Count 11.1H, Red Blood Count 3.06L, Hemoglobin 9.6L, Hematocrit 28.4L, Mean Corpuscular Volume 93, Mean Corpuscular Hemoglobin 31.3H, Mean Corpuscular Hemoglobin Concent 33.7, Red Cell Distribution Width 13.6, Platelet Count 196, Mean Platelet Volume 7.8, Neutrophils (%) (Auto) 80.9H, Lymphocytes ( %) (Auto) 10.5L, Monocytes (%) (Auto) 8.1, Eosinophils (%) (Auto) 0.0, Basophils (%) (Auto) 0.5, Sodium Level 140, Potassium Level 3.4L, Chloride Level 98, Carbon Dioxide Level 17L, Anion Gap 25H, Blood Urea Nitrogen 90H, Creatinine 18.1H, Estimat Glomerular Filtration Rate 2.8, Glucose Level 148H, Calcium Level 7.1L, Calcium (Send out) [Pending], Phosphorus Level 12.7H, Total Bilirubin 0.6, Aspartate Amino Transf (AST/SGOT) 8L, Alanine Aminotransferase ( ALT/SGPT) 25, Alkaline Phosphatase 146H, Total Protein 8.1, Albumin 2.9L, Globulin 5.2, Albumin/Globulin Ratio 0.6L, Parathyroid Hormone (Intact) [Pending ] Height (Feet): 5 Height (Inches): 5.00 Weight (Pounds): 128 General Appearance: no apparent distress, alert, thin Neurologic: oriented x 3, responsive, depressed affect MIPS Medication Reconciliation 130 Medication Reconciliation BMI was documented today or within the past year. BMI was outside normal parameters, and the patient received counseling. Is this a Psycho/Diag encounte: Yes Unhealthy Alcohol Use 431 (psycho/diag only) I Obtained,updated or reviewed the patient's current medications (including prescription,over the counter, herbal, and nutritional supplements). Depression 134,411,370 (psycho/diag only) Depression screening was performed in the past 6 months. PHQ-9 Score: 24 Does this Patient have Dementi: Bayron Morales MD Jul 26, 2018 16:12
[2018-07-26 20:00] VITALS: BP 146/72
[2018-07-27] VITALS: BP 145/77
[2018-07-27 04:00] VITALS: BP 144/65
[2018-07-27] MEDS ORDERED: Heparin Sod 1000 units/ml 10ml IV PRN (06:00)
[2018-07-27] MEDS: NovoLOG Insulin Flexpen SUBQ SCH ×3 (06:13→16:30)
[2018-07-27 08:00] VITALS: BP 128/57
--- NOTE | 2018-07-27 08:05 | Nephrology Progress Note ---
Assessment/Plan Plan Uremia due to noncompliance - HD today. DW patient. Seen by Psych. DC home after HD. Subjective Subjective No new c/o Objective Objective Last 24 Hour Vital Signs Date Time Temp Pulse Resp B/P (MAP) Pulse Ox O2 Delivery O2 Flow Rate FiO2 07/27/18 06:18 144/65 07/27/18 04:00 98.1 78 18 144/65 (91) 96 07/27/18 04:00 79 07/27/18 00:00 97.7 80 18 145/77 (99) 94 07/27/18 00:00 82 07/26/18 23:56 145/77 07/26/18 21:25 83 114/53 07/26/18 21:00 Room Air 07/26/18 20:00 79 07/26/18 20:00 98.1 84 18 146/72 (96) 94 07/26/18 18:00 114/53 07/26/18 16:00 98.7 78 20 114/53 (73) 93 07/26/18 16:00 78 07/26/18 12:08 118/65 07/26/18 12:00 79 07/26/18 12:00 98.6 82 20 118/65 (82) 95 07/26/18 09:00 Room Air 07/26/18 08:53 79 132/71 Intake and Output 07/26/18 07/27/18 18:59 06:59 Intake Total 240 ml 120 ml Balance 240 ml 120 ml Intake Oral 240 ml Other 120 ml # Voids 1 # Bowel Movements 1 Height (Feet): 5 Height (Inches): 5.00 Weight (Pounds): 125 Objective Poor vision. CV RR Lungs CTA Abd SNT. BS + E No CCE Ann Varner MD Jul 27, 2018 08:05
[2018-07-27] MEDS ORDERED: SENSIPAR30 MG ORAL (08:12)
[2018-07-27] MEDS: Sensipar 30mg Tab ORAL SCH (09:11)
[2018-07-27] MEDS: Ascorbic Acid 500mg tab ORAL SCH (09:11)
[2018-07-27] MEDS: Zinc Sulfate 220mg cap ORAL SCH (09:11)
[2018-07-27 12:00] VITALS: BP 125/61
[2018-07-27] MEDS ORDERED: LEXAPRO10 MG ORAL ×2 (13:18→13:19)
[2018-07-27] MEDS: Heparin Sod 1000 units/ml 10ml IV SCH (15:00)
--- NOTE | 2018-07-28 11:08 | Discharge Summary ---
Discharge Summary Discharge Summary _ DATE OF ADMISSION: 07/25/2018 DATE OF DISCHARGE: 07/27/2018 CONSULTANTS: Dr. Bayron Tim BRIEF HOSPITAL COURSE: Patient is a 48-year-old male, extremely noncompliant with his outpatient dialysis therapy. The patient missed almost 2 weeks of hemodialysis. The patient was supposed to go to the hospital to be admitted, he was admitted then left AGAINST MEDICAL ADVICE. He was called back and presented to ED, however, again left AGAINST MEDICAL ADVICE. The patient presented for third time in succession to ED. On evaluation, creatinine was elevated to 26, BUN 137. He had uremia due to noncompliance. He was admitted. He was given [id number] inpatient hemodialysis. Psychiatrist was consulted. He was diagnosed with severe depression and hypersomnia. He was started on Lexapro 10 mg every morning. He was continued on inpatient hemodialysis. He was eventually cleared for discharge home. Stressed need to comply with hemodialysis sessions. FINAL DIAGNOSES: Uremia due to noncompliance End-stage renal disease on hemodialysis Severe major depressive disorder DISPOSITION: Patient was discharged home. DISCHARGE MEDICATIONS: Refer to Discharge Medication List. DISCHARGE INSTRUCTIONS: Follow up in a week. I have been assigned to dictate discharge summary on this account, and I was not involved in the patient's management. Mariaa Jacobs NP Jul 28, 2018 11:08
--- NOTE | 2018-07-28 20:04 | Cardiology Report ---
APPROVED REPORT EKG Measurement Heart [id number] Normal sinus rhythm Possible Left atrial enlargement Borderline ECG
--- NOTE | 2018-07-28 20:20 | Cardiology Report ---
APPROVED REPORT EXAM: Two-dimensional and M-mode echocardiogram with Doppler and color Doppler. INDICATION Congestive Heart Failure M-Mode DIMENSIONS IVSd1.3 (0.7-1.1cm)Left Atrium (MM)4.3 (1.6-4.0cm) LVDd5.0 (3.5-5.6cm)Aortic Root3.4 (2.0-3.7cm) PWd1.4 (0.7-1.1cm)Aortic Cusp Exc.2.0 (1.5-2.0cm) LVDs3.1 (2.5-4.0cm) PWs1.6 cm Normal left ventricular chamber size, hyperdynamic systolic function and wall motion. Left ventricular ejection fraction estimated to be 70-75 %. No evidence of left ventricular hypertrophy. No evidence of pericardial effusion. Left and right atrial sizes at upper limits of normal. Right ventricular chamber size is within normal limits. Mild focal aortic valve sclerosis with adequate cusp excursion. Mildly thickened mitral valve leaflets with normal excursion. Mitral annulus and aortic root calcification. Pulmonic valve not well visualized. Normal tricuspid valve structure. IVC dilated at 2.1 cm without physiologic collapse suggestive of mildly increased RA pressure. A color flow and spectral Doppler study was performed and revealed: Trace aortic regurgitation. Mild mitral regurgitation. Mitral inflow indicates normal left ventricular diastolic function. Moderate tricuspid regurgitation. Tricuspid systolic velocities suggests peak right ventricular systolic pressure of 63 mmHg, consistent with severe pulmonary hypertension. Trace pulmonic regurgitation present.
== END 2018-07-27 17:56 | disposition home or self-care (01) | DRG 700 ==
LOC: EMR 01:18 → 2E 01:55 → MERGE 01:55 → EDBEDREQ 02:44
PROC: 5A1D70Z Performance of Urinary Filtration, Intermittent, Less than 6 Hours Per Day (ICD-10-PCS; principal; 2018-07-25)
DX: E11.22 Type 2 diabetes mellitus with diabetic chronic kidney disease (principal); N18.6 End stage renal disease; Z99.2 Dependence on renal dialysis; Z91.15 Patient's noncompliance with renal dialysis; E11.40 Type 2 diabetes mellitus with diabetic neuropathy, unspecified; E11.319 Type 2 diabetes mellitus with unspecified diabetic retinopathy without macular edema; I95.1 Orthostatic hypotension; D63.1 Anemia in chronic kidney disease; F32.9 Major depressive disorder, single episode, unspecified; Z79.4 Long term (current) use of insulin; G47.10 Hypersomnia, unspecified
CPT/HCPCS: 36415; 71045; 80053; 82550; 82553; 82962; 83036; 83970; 84100; 84484; 85025; 87081; 93005; 93306; 96374; 99284; 99285; J1815; J2405

== ENCOUNTER 2019-04-25 15:55 | Emergency (ER) | payer MEDICARE, MEDICAID ==
[~2019-04-25] VITALS: Ht 162.6 cm; Wt 54.4 kg
[~2019-04-25 15:55] MED LIST changes: +LEXAPRO10 MG ORAL; +SENSIPAR30 MG ORAL
[2019-04-25 16:15] VITALS: BP 136/83
[2019-04-25 16:27] LABS: BASOPHILS % (AUTO) 2.3 % (0.0-2.0); HEMATOCRIT 35.8 % (42.0-52.0); HEMOGLOBIN 12.1 G/DL (14.2-18.0); LYMPHOCYTES % (AUTO) 23.5 % (20.0-45.0); MEAN CORPUSCULAR VOLUME 84 FL (80-99); MONOCYTES % (AUTO) 7.1 % (1.0-10.0); NEUTROPHILS % (AUTO) 60.2 % (45.0-75.0); PLATELET COUNT 162 K/UL (150-450); RED BLOOD COUNT 4.25 M/UL (4.70-6.10); WHITE BLOOD COUNT 6.1 K/UL (4.8-10.8)
--- NOTE | 2019-04-25 16:38 | Emergency Room Report ---
History of Present Illness General Chief Complaint: Generalized Weakness Source: Patient Present Illness HPI Disclaimer: Please note that this report is being documented using EMUZE technology. This can lead to erroneous entry secondary to incorrect interpretation by the dictating instrument. HPI: This a 48-year-old male with history of ESRD on hemodialysis, chronic anemia, diabetes presents for evaluation of dizziness and fatigue after dialysis. He underwent a full treatment today and then he began to feel lightheaded/dizzy with some shortness of breath and generalized weakness. He said he has felt this way in the past several times. He feels somewhat improved but still fatigued. He is also complaining of feeling warm. Denies any new rash. Denies any recent illness. Otherwise denies abdominal pain, vomiting, diarrhea. Does note nausea. PMH: ESRD on dialysis, anemia, diabetes PSH: Fistula formation left upper extremity Allergies: Denies Social Hx: His drug or alcohol abuse Allergies: Coded Allergies: No Known Allergies (Unverified , 01/04/14) Nursing Documentation-PMH Past Medical History: No History, Except For Hx Cardiac Problems: Yes Hx Hypertension: Yes Hx Pacemaker: No Hx Asthma: No Hx COPD: No Hx Diabetes: Yes Hx Cancer: No Hx Gastrointestinal Problems: No Hx Dialysis: Yes Hx Neurological Problems: No Hx Cerebrovascular Accident: No Hx Transient Ischemic Attacks: No Hx Seizures: No Hx Peripheral Neuropathy: Yes Hx Headaches: Yes Hx Numbness: Yes Review of Systems All Other Systems: negative except mentioned in HPI Physical Exam Vital Signs Date Time Temp Pulse Resp B/P (MAP) Pulse Ox O2 Delivery O2 Flow Rate FiO2 04/25/19 15:56 97.9 88 18 136/83 (100) 97 Room Air General: Awake and alert, appears fatigued HEENT: NC/AT. EOMI. Cardiovascular: RRR. S1 and S2 normal. No murmur appreciated. Fistula in the left upper extremity with palpable thrill Resp: Normal work of breathing. No cough, wheezing or crackles appreciated Abdomen: Abdomen is soft, nondistended. Nontender Skin: Warm to the touch. Intact. No abrasions, laceration or rash over the exposed skin MSK: Normal tone and bulk. Moving all extremities. No obvious deformity. Neuro: Awake and alert. Mentating appropriately. Medical Decision Making Diagnostic Impression: Primary Impression: ESRD on hemodialysis Additional Impressions: Episode of generalized weakness HTN (hypertension) ER Course This 48-year male with history of ESRD on hemodialysis presents for evaluation of dizziness, lightheadedness, weakness and difficulty breathing after dialysis. Differential includes was not limited to fluid overload, disequilibrium syndrome, electrolyte abnormality, pneumonia, bronchitis, pneumothorax, vertigo, fatigue, orthostatic hypotension, over dialysis. We will start a broad metabolic and infectious work-up including chest x-ray. Will treat with antiemetics and meclizine Laboratory Tests Test 04/25/19 16:15 White Blood Count 6.1 K/UL (4.8-10.8) Red Blood Count 4.25 M/UL (4.70-6.10) L Hemoglobin 12.1 G/DL (14.2-18.0) L Hematocrit 35.8 % (42.0-52.0) L Mean Corpuscular Volume 84 FL (80-99) Mean Corpuscular Hemoglobin 28.4 PG (27.0-31.0) Mean Corpuscular Hemoglobin Concent 33.7 G/DL (32.0-36.0) Red Cell Distribution Width 12.0 % (11.6-14.8) Platelet Count 162 K/UL (150-450) Mean Platelet Volume 6.7 FL (6.5-10.1) Neutrophils (%) (Auto) 60.2 % (45.0-75.0) Lymphocytes (%) (Auto) 23.5 % (20.0-45.0) Monocytes (%) (Auto) 7.1 % (1.0-10.0) Eosinophils (%) (Auto) 7.0 % (0.0-3.0) H Basophils (%) (Auto) 2.3 % (0.0-2.0) H Sodium Level 138 MMOL/L (136-145) Potassium Level 3.5 MMOL/L (3.5-5.1) Chloride Level 97 MMOL/L (98-107) L Carbon Dioxide Level 26 MMOL/L (21-32) Anion Gap 16 mmol/L (5-15) H Blood Urea Nitrogen 30 mg/dL (7-18) H Creatinine 8.4 MG/DL (0.55-1.30) H Estimate Glomerular Filtration Rate 6.9 mL/min (>60) Glucose Level 324 MG/DL (74-106) H Calcium Level 8.2 MG/DL (8.5-10.1) L Phosphorus Level 4.0 MG/DL (2.5-4.9) Magnesium Level 2.4 MG/DL (1.8-2.4) Total Bilirubin 0.6 MG/DL (0.2-1.0) Aspartate Amino Transferase (AST) 9 U/L (15-37) L Alanine Aminotransferase (ALT) 29 U/L (12-78) Alkaline Phosphatase 209 U/L (46-116) H Troponin I 0.000 ng/mL (0.000-0.056) Pro-B-Type Natriuretic Peptide 3833 pg/mL (0-125) H Total Protein 8.3 G/DL (6.4-8.2) H Albumin 3.8 G/DL (3.4-5.0) Globulin 4.5 g/dL Albumin/Globulin Ratio 0.8 (1.0-2.7) L Reevaluation Time: 18:43 Last Vital Signs Date Time Temp Pulse Resp B/P (MAP) Pulse Ox O2 Delivery O2 Flow Rate FiO2 04/25/19 16:15 88 18 Room Air 04/25/19 16:15 97.9 136/83 97 Reevaluation Impression Potassium within normal limits. Symptoms have resolved. His hypertension was treated with a single IV dose of hydralazine. He is feeling well and ambulating in the emergency department no difficulty. He has no complaints at this time and is safe and appropriate for outpatient follow-up with his eap consultant and PMD. We discussed reasons to return to the emergency department. He understands and agrees with this treatment plan. Disposition: HOME, SELF-CARE Condition: Improved Shakeel Stephen MD Apr 25, 2019 16:38
[2019-04-25 16:45] LABS: ANION GAP 16 mmol/L (5-15); BLOOD UREA NITROGEN 30 mg/dL (7-18); CALCIUM 8.2 MG/DL (8.5-10.1); CARBON DIOXIDE 26 MMOL/L (21-32); CHLORIDE 97 MMOL/L (98-107); CREATININE 8.4 MG/DL (0.55-1.30); POTASSIUM 3.5 MMOL/L (3.5-5.1); SODIUM 138 MMOL/L (136-145)
[2019-04-25] MEDS ORDERED: Meclizine 25mg tab ORAL PRN (16:45)
[2019-04-25 16:56] LABS: ALANINE AMINOTRANSFERASE 29 U/L (12-78); ALBUMIN 3.8 G/DL (3.4-5.0); ALBUMIN/GLOBULIN RATIO 0.8 (1.0-2.7); ALKALINE PHOSPHATASE 209 U/L (46-116); ASPARTATE AMINO TRANSFERASE 9 U/L (15-37); BILIRUBIN,TOTAL 0.6 MG/DL (0.2-1.0)
--- NOTE | 2019-04-25 17:27 | Diagnostic Imaging Report ---
Indication: Shortness of breath Technique: One view of the chest Comparison: 07/24/2014 Findings: Lungs and pleural spaces are clear. The heart size is normal. The aorta is calcified. Previously demonstrated dialysis catheter is no longer evident Impression: No acute process
[2019-04-25 18:22] VITALS: BP 197/74
[2019-04-25 18:32] VITALS: BP 148/82
[2019-04-25 18:56] VITALS: BP 136/77
== END 2019-04-25 18:57 | disposition home or self-care (01) ==
LOC: EMR 16:33
DX: R53.1 Weakness (principal); I12.0 Hypertensive chronic kidney disease with stage 5 chronic kidney disease or end stage renal disease; E11.22 Type 2 diabetes mellitus with diabetic chronic kidney disease; Z99.2 Dependence on renal dialysis; N18.6 End stage renal disease; E11.42 Type 2 diabetes mellitus with diabetic polyneuropathy; D63.1 Anemia in chronic kidney disease; R06.02 Shortness of breath
CPT/HCPCS: 36415; 71045; 80053; 83735; 83880; 84100; 84484; 85025; 96374; 99284; J0360

== ENCOUNTER 2019-06-01 14:49 | Emergency (ER) | payer MEDICARE, MEDICAID ==
[~2019-06-01] VITALS: Ht 165.1 cm; Wt 71.7 kg
[2019-06-01 15:00] VITALS: BP 160/87
--- NOTE | 2019-06-01 15:00 | NUR ---
ED Nurse Note: pt. was sent by Audie Burton his primary care doctor due to HTN, Per pt. systolic was over 200. current at triage is 160/87. Per pt, he startd vomiting today as well accompanied with headache. patient states that he did not go to dialysis yesterday and has not been feeling well. patient is alert and oriented x4, ambulatory with a steady gait
[2019-06-01] MEDS ORDERED: DiphenhydrAMINE 50mg/ml Inj IVP ONE (15:15)
[2019-06-01] MEDS ORDERED: Haloperidol 5mg/ml Inj IM ONE (15:15)
[2019-06-01] MEDS ORDERED: LABETALOL IV ONE (15:15)
[2019-06-01] MEDS ORDERED: NS IV ONE (15:15)
[2019-06-01 16:08] LABS: BASOPHILS % (AUTO) 1.4 % (0.0-2.0); EOSINOPHILS % (AUTO) 3.2 % (0.0-3.0); HEMATOCRIT 30.4 % (42.0-52.0); HEMOGLOBIN 9.8 G/DL (14.2-18.0); LYMPHOCYTES % (AUTO) 12.1 % (20.0-45.0); MEAN CORPUSCULAR VOLUME 89 FL (80-99); MONOCYTES % (AUTO) 7.6 % (1.0-10.0); NEUTROPHILS % (AUTO) 75.6 % (45.0-75.0); PLATELET COUNT 170 K/UL (150-450); RED BLOOD COUNT 3.42 M/UL (4.70-6.10); RED CELL DISTRIBUTION WIDTH 16.7 % (11.6-14.8)
[2019-06-01 16:10] LABS: INR 0.9 (0.9-1.1)
[2019-06-01 16:16] LABS: ANION GAP 14 mmol/L (5-15); BLOOD UREA NITROGEN 29 mg/dL (7-18); CALCIUM 7.8 MG/DL (8.5-10.1); CARBON DIOXIDE 26 MMOL/L (21-32); CHLORIDE 97 MMOL/L (98-107); CREATININE 7.9 MG/DL (0.55-1.30); POTASSIUM 3.4 MMOL/L (3.5-5.1); SODIUM 136 MMOL/L (136-145)
--- NOTE | 2019-06-01 16:27 | Diagnostic Imaging Report ---
Indications: Headache and vomiting Technique: Spiral acquisitions obtained through the brain. Angled axial and coronal 5 x 5 mm slices were reconstructed. Total dose length product 1394 mGycm. CTDI vol(s) 60 mGy. Dose reduction achieved using automated exposure control Comparison: None. Findings: No acute intracranial hemorrhage or edema. No mass effect nor midline shift. Normal schneider-white differentiation. There is ethmoid and sphenoid sinus disease. There is minimal mastoid disease bilaterally. The calvarium is intact. The orbits are unremarkable. Impression: Negative for acute intracranial bleed or mass effect Minimal ethmoid and sphenoid sinus disease. Minimal mastoid disease The CT scanner at [facility] is accredited by the [employer] and the scans are performed using protocols designed to limit radiation exposure to as low as reasonably achievable to attain images of sufficient resolution adequate for diagnostic evaluation.
[2019-06-01 16:31] LABS: ALANINE AMINOTRANSFERASE 44 U/L (12-78); ALBUMIN 3.6 G/DL (3.4-5.0); ALBUMIN/GLOBULIN RATIO 0.8 (1.0-2.7); ALKALINE PHOSPHATASE 195 U/L (46-116); ASPARTATE AMINO TRANSFERASE 16 U/L (15-37); CKMB 3.2 NG/ML (0.0-3.6); CREATINE KINASE 217 U/L (26-308)
[2019-06-01] MEDS ORDERED: Heparin Sod 1000 units/ml 10ml IV PRN (17:00)
--- NOTE | 2019-06-01 17:15 | Diagnostic Imaging Report ---
Indication: Shortness of breath Technique: One view of the chest Comparison: 04/25/2019 Findings: Inspiration is suboptimal, with crowding of bronchovascular markings. There is equivocal mild central interstitial congestion and bronchial wall thickening. The heart size is normal. The pleural spaces are clear Impression: Equivocal minimal central bronchial wall thickening and interstitial prominence, could indicate bronchitis changes. Correlate with clinical findings No acute process otherwise
[2019-06-01 17:25] VITALS: BP 142/82
--- NOTE | 2019-06-01 17:25 | NUR ---
AMA: Patient is leaving AMA. patient understands the risks of leaving AMA such as . Dr. Kelsey and BRAULIO Bautista at bedside to explain the risks of leaving ama. Patient still states that he wants to leave
--- NOTE | 2019-06-01 17:29 | Emergency Room Report ---
History of Present Illness General Chief Complaint: Hypertension Source: Patient Present Illness HPI 48-year-old male with history of ESRD the, currently under dialysis, hypertension, Ddx considered but are not limited to: Diabetes mellitus type 2 uncontrolled, diabetes mellitus, here complaining of multiple bouts of emesis that started after his dialysis yesterday. Patient complains of headache pointing that his headache is anterior radiating to the back of his head, dizziness, nonbloody emesis. Denies abdominal pain, diarrhea constipation, chest pain, shortness of breath, palpitation, or other associated symptoms. Patient reports that he cannot produce urine. Denies fever and chills. Patient reports that he is compliant with his dialysis. Denies blurry vision and palpitation. Patient is actively having multiple bouts of emesis, denying drug use and smoking. Denies alcohol intake. Denies syncope, head trauma, no other associated symptoms. We get a call from Dr. Haines that patient missed his dialysis yesterday and Dr. Varner wants him to be admitted. Patient also decides to leave AGAINST MEDICAL ADVICE and understand the risks of having fluid overload and missing his dialysis. Allergies: Coded Allergies: No Known Allergies (Unverified , 01/04/14) Patient History Past Medical History: see triage record Past Surgical History: unable to obtain Pertinent Family History: none Immunizations: UTD Reviewed Nursing Documentation: PMH: Agreed; PSxH: Agreed Nursing Documentation-PMH Hx Cardiac Problems: Yes Hx Hypertension: Yes Hx Pacemaker: No Hx Asthma: No Hx COPD: No Hx Diabetes: Yes Hx Cancer: No Hx Gastrointestinal Problems: No Hx Dialysis: Yes Hx Neurological Problems: No Hx Cerebrovascular Accident: No Hx Transient Ischemic Attacks: No Hx Seizures: No Hx Peripheral Neuropathy: Yes Hx Headaches: Yes Hx Numbness: Yes Review of Systems All Other Systems: negative except mentioned in HPI Physical Exam Vital Signs Date Time Temp Pulse Resp B/P (MAP) Pulse Ox O2 Delivery O2 Flow Rate FiO2 06/01/19 14:55 98.1 93 19 160/87 (111) 96 Room Air Sp02 EP Interpretation: reviewed, abnormal General Appearance: alert, GCS 15, non-toxic, moderate distress Head: normocephalic, atraumatic Eyes: bilateral eye normal inspection, bilateral eye PERRL ENT: hearing grossly normal, normal pharynx, no angioedema, normal voice Neck: full range of motion, supple/symm/no masses Respiratory: chest non-tender, lungs clear, normal breath sounds, no rhonchi, no wheezing, speaking full sentences Cardiovascular #1: regular rate, rhythm, no edema, no murmur, normal capillary refill Cardiovascular #2: 2+ dorsalis pedis (R), 2+ dorsalis pedis (L) Gastrointestinal: normal bowel sounds, non tender, soft, non-distended, no guarding, no rebound Genitourinary: normal inspection, no CVA tenderness Musculoskeletal: back normal, gait/station normal, normal range of motion, non- tender, no calf tenderness Neurologic: alert, oriented x3, responsive, motor strength/tone normal, sensory intact, speech normal Psychiatric: judgement/insight normal, memory normal, mood/affect normal, no suicidal/homicidal ideation Skin: no rash Lymphatic: no adenopathy Medical Decision Making PA Attestation All diagnoses and treatment plans were reviewed and discussed with my supervising physician Dr. Kelsey Diagnostic Impression: Primary Impression: ESRD on hemodialysis Additional Impressions: Pulmonary edema Fluid overload ER Course 48-year-old male with history of ESRD the, currently under dialysis, hypertension, Ddx considered but are not limited to: Diabetes mellitus type 2 uncontrolled, diabetes mellitus, here complaining of multiple bouts of emesis that started after his dialysis yesterday. Patient complains of headache pointing that his headache is anterior radiating to the back of his head, dizziness, nonbloody emesis. Denies abdominal pain, diarrhea constipation, chest pain, shortness of breath, palpitation, or other associated symptoms. Patient reports that he cannot produce urine. Denies fever and chills. Patient reports that he is compliant with his dialysis. Denies blurry vision and palpitation. Patient is actively having multiple bouts of emesis, denying drug use and smoking. Denies alcohol intake. Denies syncope, head trauma, no other associated symptoms. We get a call from Dr. Haines that patient missed his dialysis yesterday and Dr. Varner wants him to be admitted. Patient also decides to leave AGAINST MEDICAL ADVICE and understand the risks of having fluid overload and missing his dialysis. Ddx considered but are not limited to: HI, Angina, COPD, GERD, ESRD, fluid overload, pulmonary edema Vital signs: are WNL, pt. is afebrile H&PE are most consistent with pulmonary edema, fluid overload ORDERS: EKG, Chest XR, cardiac labs(troponin, CBC, CMP, lipid, BNP) ED INTERVENTIONS: NS bolus, Zofran, Benadryl and Haldol DISCHARGE: At this time pt. is stable for d/c to home. Will provide printed patient care instructions, and any necessary prescriptions. Care plan and follow up instructions have been discussed with the patient prior to discharge. Patient left AGAINST MEDICAL ADVICE. EKG Diagnostic Results Rate: normal Rhythm: NSR ST Segments: no acute changes Other Impression No acute ST changes Chest X-Ray Diagnostic Results Chest X-Ray Diagnostic Results : Chest X-Ray Ordered: Yes # of Views/Limited/Complete: 1 View Indication: Other EP Interpretation: Yes PA Xray: Interpretation reviewed, by supervising MD, and agrees with findings. Interpretation: no consolidation, no pneumothorax, other - pulmonary edema Impression: Other - pulmonary edema Electronically Signed by: Michele Worthington PA-C CT/MRI/US Diagnostic Results CT/MRI/US Diagnostic Results : Imaging Test Ordered: head ct no contrast Impression No intracranial bleeding and no acute changes Last Vital Signs Date Time Temp Pulse Resp B/P (MAP) Pulse Ox O2 Delivery O2 Flow Rate FiO2 06/01/19 14:55 98.1 93 19 160/87 (111) 96 Room Air Disposition: AGAINST MEDICAL ADVICE Condition: Stable Referrals: NON PHYSICIAN (PCP) Michele Dumont Jun 01, 2019 17:29
--- NOTE | 2019-06-03 17:35 | Cardiology Report ---
APPROVED REPORT EKG Measurement Heart [id number] Normal sinus rhythm Possible Left atrial enlargement Nonspecific ST and T wave abnormality Abnormal ECG
== END 2019-06-01 17:25 | disposition left against medical advice (07) ==
LOC: EMR 15:25 → CANBEDREQ 17:33
DX: E11.22 Type 2 diabetes mellitus with diabetic chronic kidney disease (principal); I12.0 Hypertensive chronic kidney disease with stage 5 chronic kidney disease or end stage renal disease; N18.6 End stage renal disease; Z99.2 Dependence on renal dialysis; J81.1 Chronic pulmonary edema; E87.70 Fluid overload, unspecified; E11.40 Type 2 diabetes mellitus with diabetic neuropathy, unspecified; R51 Headache; R11.10 Vomiting, unspecified
CPT/HCPCS: 36415; 70450; 71045; 80053; 82550; 82553; 83880; 84484; 85025; 85610; 85730; 86850; 86900; 86901; 93005; 96372; 96374; 96375; 99284; G0480; J1200; J1630; J2405

== ENCOUNTER 2019-06-08 20:27 | Emergency (ER) | payer MEDICARE, MEDICAID ==
[~2019-06-08] VITALS: Ht 165.1 cm; Wt 59.0 kg
[2019-06-08 20:44] VITALS: BP 123/70
--- NOTE | 2019-06-08 20:44 | NUR ---
ED Nurse Note: pt walked in to ED C/O dizziness and weakness. pt states he has veen having diarrhea since wednesday. pt is on HD ; wed//sat. pt had his HD today and ended 1330 today. pt is alert x4
--- NOTE | 2019-06-08 21:03 | NUR ---
ED Nurse Note: blood sample sent down to lab
--- NOTE | 2019-06-08 21:06 | Emergency Room Report ---
History of Present Illness General Chief Complaint: Generalized Weakness Source: Patient Present Illness HPI Patient had dialysis earlier today reports that afterwards he was feeling somewhat weak Denies any headache denies any chest pain patient has had some reported diarrhea Patient also has had several episodes similar to this reports that he Had significantly decreased total weight after his dialysis and feels that he is getting too much fluid taken off Denies any fevers or chills denies any chest pain or shortness of breath Allergies: Coded Allergies: No Known Allergies (Unverified , 01/04/14) Patient History Past Medical History: see triage record Reviewed Nursing Documentation: PMH: Agreed; PSxH: Agreed Nursing Documentation-PMH Past Medical History: No Stated History Hx Cardiac Problems: Yes Hx Hypertension: Yes Hx Pacemaker: No Hx Asthma: No Hx COPD: No Hx Diabetes: Yes Hx Cancer: No Hx Gastrointestinal Problems: No Hx Dialysis: Yes - T,TH,SAT Hx Neurological Problems: No Hx Cerebrovascular Accident: No Hx Transient Ischemic Attacks: No Hx Seizures: No Hx Peripheral Neuropathy: Yes Hx Headaches: Yes Hx Numbness: Yes Review of Systems All Other Systems: negative except mentioned in HPI Physical Exam Vital Signs Date Time Temp Pulse Resp B/P (MAP) Pulse Ox O2 Delivery O2 Flow Rate FiO2 06/08/19 20:38 97.9 89 22 73/50 (58) 98 Room Air 06/08/19 20:44 99 Sp02 EP Interpretation: reviewed, normal General Appearance: well appearing, no apparent distress Head: normocephalic, atraumatic Eyes: bilateral eye PERRL, bilateral eye EOMI ENT: hearing grossly normal, normal pharynx, TMs + canals normal, uvula midline Neck: full range of motion, supple, no meningismus, no bony tend Respiratory: lungs clear, normal breath sounds, no rhonchi, no respiratory distress, no retraction, no accessory muscle use Cardiovascular #1: normal peripheral pulses, regular rate, rhythm, no edema, no gallop, no JVD, no murmur Gastrointestinal: normal bowel sounds, non tender, soft, no mass, no organomegaly, non-distended, no guarding, no hernia, no pulsatile mass, no rebound Genitourinary: no CVA tenderness Musculoskeletal: normal inspection - AV shunt left upper arm Neurologic: oriented x3, responsive, block paver III-XII nml as tested, motor strength/ tone normal, sensory intact Psychiatric: mood/affect normal Skin: no rash Lymphatic: normal inspection, no adenopathy Medical Decision Making Diagnostic Impression: Primary Impression: Episode of generalized weakness ER Course Multiple differentials and consideration including but not limited to cardiac, cardiopulmonary, infectious etiology, metabolic disorder entertained Please note that the patient's blood pressure at triage was noted to be 72 systolic However the very next blood pressure in few minutes shows blood pressure of 122/ 70 Patient is having close monitoring of his heart rate and blood pressure it appears at the initial number could be erroneous Rhythm Strip Diag. Results EP Interpretation: yes Rate: 72 Rhythm: NSR, no PVC's, no ectopy Last Vital Signs Date Time Temp Pulse Resp B/P (MAP) Pulse Ox O2 Delivery O2 Flow Rate FiO2 06/08/19 20:44 76 21 Room Air 99 06/08/19 20:44 97.9 123/70 98 Status: improved Disposition: HOME, SELF-CARE Condition: Improved Additional Instructions: Patient is provided with the discharge instructions notified to follow up with primary doctor in the next 2-3 days otherwise return to the er with any worsening symptoms. Please note that this report is being documented using [employer] technology. This can lead to erroneous entry secondary to incorrect interpretation by the dictating instrument. Deni Landa DO Jun 08, 2019 21:06
[2019-06-08 21:07] LABS: BASOPHILS % (AUTO) 2.7 % (0.0-2.0); HEMATOCRIT 36.6 % (42.0-52.0); HEMOGLOBIN 11.7 G/DL (14.2-18.0); LYMPHOCYTES % (AUTO) 27.6 % (20.0-45.0); MEAN CORPUSCULAR VOLUME 90 FL (80-99); MONOCYTES % (AUTO) 11.1 % (1.0-10.0); NEUTROPHILS % (AUTO) 53.8 % (45.0-75.0); PLATELET COUNT 270 K/UL (150-450); RED BLOOD COUNT 4.08 M/UL (4.70-6.10); RED CELL DISTRIBUTION WIDTH 17.1 % (11.6-14.8); WHITE BLOOD COUNT 7.6 K/UL (4.8-10.8)
[2019-06-08 21:27] LABS: ANION GAP 13 mmol/L (5-15); BLOOD UREA NITROGEN 19 mg/dL (7-18); CALCIUM 7.4 MG/DL (8.5-10.1); CARBON DIOXIDE 27 MMOL/L (21-32); CHLORIDE 100 MMOL/L (98-107); CREATININE 6.9 MG/DL (0.55-1.30); POTASSIUM 3.4 MMOL/L (3.5-5.1); SODIUM 140 MMOL/L (136-145)
[2019-06-08 21:48] VITALS: BP 120/71
--- NOTE | 2019-06-08 21:48 | NUR ---
ER DISCHARGE NOTE: Patient is cleared to be discharged per ERMD, pt is aox4, on room air, with stable vital signs. pt was given dc instructions, pt was able to verbalize understanding, pt id band removed without complications. pt is able to ambulate with steady gait. pt took all belongings.
== END 2019-06-08 21:48 | disposition home or self-care (01) ==
LOC: EMR 21:11
DX: R53.1 Weakness (principal); I12.0 Hypertensive chronic kidney disease with stage 5 chronic kidney disease or end stage renal disease; E11.22 Type 2 diabetes mellitus with diabetic chronic kidney disease; N18.6 End stage renal disease; Z99.2 Dependence on renal dialysis; E11.42 Type 2 diabetes mellitus with diabetic polyneuropathy
CPT/HCPCS: 36415; 80048; 85025; 99283

== ENCOUNTER 2019-06-12 19:10 | Inpatient (IN) | payer MEDICARE, MEDICAID ==
[~2019-06-12] VITALS: Ht 165.1 cm; Wt 57.8 kg
--- NOTE | 2019-06-12 19:21 | NUR ---
ED Nurse Note: ERMD NOTIFIED REGARDING PT'S CONDITION BP SYS 70S.
--- NOTE | 2019-06-12 19:23 | NUR ---
ED Nurse Note: pt was wheeled to ED from home accompanied by his son. pt completed dialysis Wednesday. per son, pt has been "more altered than usual today". Dialysis schedule T, , S. Left arm fistula. pt is alert x2 at this time.
[2019-06-12 19:25] VITALS: BP 79/50
--- NOTE | 2019-06-12 19:27 | Emergency Room Report ---
History of Present Illness General Chief Complaint: Altered Mental Status Source: Patient, Family Member Present Illness HPI Disclaimer: Please note that this report is being documented using [employer] technology. This can lead to erroneous entry secondary to incorrect interpretation by the dictating instrument. HPI: 48-year-old male with a history of ESRD on hemodialysis TRS, hypertension, depression presents for evaluation of weakness and confusion. He is brought in by family. They state that he spent all day in bed yesterday complaining of some dizziness and then became progressively more confused and altered today. They stated that he could not recognize his family members while they were at home though this appears to be improving. The patient is complaining of dizziness but denies chest pain. Does not report cough, recent fevers, abdominal pain, vomiting or diarrhea. Last dialysis was reported to be Wednesday but he has a long history of noncompliance with prior hospital admissions stating such. He reports headache and lightheadedness. PMH: ESRD, hypertension, depression PSH: Fistula formation Allergies: None reported Social Hx: None Allergies: Coded Allergies: No Known Allergies (Unverified , 01/04/14) Nursing Documentation-PMH Past Medical History: No History, Except For Hx Hypertension: Yes Hx Pacemaker: No Hx Asthma: No Hx COPD: No Hx Diabetes: Yes - Right pinky toe amputee Hx Cancer: No Hx Gastrointestinal Problems: No Hx Dialysis: Yes - T,TH,SAT Hx Neurological Problems: No Hx Cerebrovascular Accident: No Hx Transient Ischemic Attacks: No Hx Seizures: No Hx Peripheral Neuropathy: Yes Hx Headaches: Yes Hx Numbness: Yes Review of Systems All Other Systems: negative except mentioned in HPI Physical Exam Vital Signs Date Time Temp Pulse Resp B/P (MAP) Pulse Ox O2 Delivery O2 Flow Rate FiO2 06/12/19 19:18 97.0 71 18 74/50 (58) 97 Room Air General: Awake and alert, appears uncomfortable, fatigued and weak HEENT: NC/AT. EOMI. dry mucous membranes Cardiovascular: RRR. S1 and S2 normal. No murmur appreciated. Fistula on the left forearm. Resp: Normal work of breathing. No cough, wheezing or crackles appreciated Abdomen: Abdomen is soft, nondistended. Nontender Skin: Intact. No abrasions, laceration or rash over the exposed skin MSK: Normal tone and bulk. Moving all extremities. No obvious deformity. Neuro: Awake and alert. Answering questions appropriately. Moving all extremities. Procedures Critical Care Time Critical Care Time Total critical care time: Approximately 45 minutes Due to a high probability of clinically significant, life threatening deterioration, the patient required the highest level of preparedness to intervene emergently and I personally spent this critical care time directly and personally managing the patient. This critical care time included obtaining a history, examining the patient, pulse oximetry, ordering and reviewing studies , ordering treatments, evaluating response to treatment and updating management plan as needed, frequent reassessment and discussion with other providers as well as arranging for ultimate disposition. This critical to care time was performed to assess and manage the high probability of life-threatening deterioration that could result in multiorgan failure. This critical care time is separate from the separately billable procedures and treating other patients. Medical Decision Making Diagnostic Impression: Primary Impression: Hyperkalemia Additional Impressions: ESRD (end stage renal disease) on dialysis Episode of generalized weakness Hypotension of hemodialysis Serum phosphate elevated Encephalopathy ER Course 48-year-old male with a history of ESRD presents for generalized weakness and altered mental status over the past 2 days. Family reports last hemodialysis 2 days ago. His EKG on arrival shows some peaked appearance to his T waves in the precordial leads and some nonspecific ST segment changes. We will start broad metabolic and infectious work-up. He is hypotensive and will give small fluid boluses. Will require admission. Laboratory Tests Test 06/12/19 19:15 White Blood Count 13.5 K/UL (4.8-10.8) H Red Blood Count 3.58 M/UL (4.70-6.10) L Hemoglobin 10.7 G/DL (14.2-18.0) L Hematocrit 32.1 % (42.0-52.0) L Mean Corpuscular Volume 90 FL (80-99) Mean Corpuscular Hemoglobin 30.0 PG (27.0-31.0) Mean Corpuscular Hemoglobin Concent 33.4 G/DL (32.0-36.0) Red Cell Distribution Width 15.8 % (11.6-14.8) H Platelet Count 199 K/UL (150-450) Mean Platelet Volume 6.8 FL (6.5-10.1) Neutrophils (%) (Auto) 68.9 % (45.0-75.0) Lymphocytes (%) (Auto) 20.2 % (20.0-45.0) Monocytes (%) (Auto) 7.1 % (1.0-10.0) Eosinophils (%) (Auto) 2.8 % (0.0-3.0) Basophils (%) (Auto) 1.1 % (0.0-2.0) Sodium Level 136 MMOL/L (136-145) Potassium Level 5.8 MMOL/L (3.5-5.1) H Chloride Level 102 MMOL/L (98-107) Carbon Dioxide Level 10 MMOL/L (21-32) L Anion Gap 24 mmol/L (5-15) H Blood Urea Nitrogen 96 mg/dL (7-18) H Creatinine 16.6 MG/DL (0.55-1.30) H Estimate Glomerular Filtration Rate 3.1 mL/min (>60) Glucose Level 152 MG/DL (74-106) H Lactic Acid Level 0.80 mmol/L (0.4-2.0) Calcium Level 6.7 MG/DL (8.5-10.1) L Phosphorus Level 14.3 MG/DL (2.5-4.9) H Magnesium Level 3.1 MG/DL (1.8-2.4) H Total Bilirubin 0.7 MG/DL (0.2-1.0) Aspartate Amino Transferase (AST) 7 U/L (15-37) L Alanine Aminotransferase (ALT) 17 U/L (12-78) Alkaline Phosphatase 187 U/L (46-116) H Total Creatine Kinase 211 U/L (26-308) Creatine Kinase MB 3.0 NG/ML (0.0-3.6) Creatine Kinase MB Relative Index 1.4 Troponin I 0.000 ng/mL (0.000-0.056) Pro-B-Type Natriuretic Peptide 9047 pg/mL (0-125) H Total Protein 7.4 G/DL (6.4-8.2) Albumin 3.3 G/DL (3.4-5.0) L Globulin 4.1 g/dL Albumin/Globulin Ratio 0.8 (1.0-2.7) L EKG Diagnostic Results EKG Time: 19:28 Rate: normal Rhythm: NSR Other Impression Sinus rhythm, normal axis, normal intervals. Slight peaked appearance to T waves in the precordial leads. Nonspecific ST segment changes Rhythm Strip Diag. Results Rhythm Strip Time: 19:28 EP Interpretation: yes Rate: 60s Rhythm: NSR, no PVC's, no ectopy Chest X-Ray Diagnostic Results Chest X-Ray Diagnostic Results : # of Views/Limited/Complete: 1 View Indication: Shortness of Breath Interpretation: no consolidation, no effusion, no pneumothorax, no acute cardiopulmonary disease Impression: No acute disease Electronically Signed by: Electronically signed by Dr. Shakeel Stephen Reevaluation Time: 21:51 Last Vital Signs Date Time Temp Pulse Resp B/P (MAP) Pulse Ox O2 Delivery O2 Flow Rate FiO2 06/12/19 19:18 97.0 71 18 74/50 (58) 97 Room Air Status: unchanged Reevaluation Impression Family called me into the room stating that the patient was complaining of changes in his hearing and vision. he noted cloudy vision but was still able to see brought outlines and movement. CT head was obtained but does not appear to show signs of acute trauma, bleed or mass according to my interpretation. Official read is pending. Chest x-ray did not show obvious infiltrate or consolidation. Labs show elevated potassium at 5.9 and will be treated with calcium and insulin given the slight peaked appearance to his T waves in the precordial leads. His BUN is elevated. His family now states that is likely he missed dialysis on Wednesday. Blood pressures are improving with small fluid boluses. He will be admitted to the stepdown unit for further management. Disposition: ADMITTED INPATIENT Condition: Serious Shakeel Stephen MD Jun 12, 2019 19:27
[2019-06-12 19:51] LABS: BASOPHILS % (AUTO) 1.1 % (0.0-2.0); EOSINOPHILS % (AUTO) 2.8 % (0.0-3.0); HEMATOCRIT 32.1 % (42.0-52.0); HEMOGLOBIN 10.7 G/DL (14.2-18.0); LYMPHOCYTES % (AUTO) 20.2 % (20.0-45.0); MEAN CORPUSCULAR VOLUME 90 FL (80-99); MONOCYTES % (AUTO) 7.1 % (1.0-10.0); NEUTROPHILS % (AUTO) 68.9 % (45.0-75.0); PLATELET COUNT 199 K/UL (150-450); RED BLOOD COUNT 3.58 M/UL (4.70-6.10); RED CELL DISTRIBUTION WIDTH 15.8 % (11.6-14.8); WHITE BLOOD COUNT 13.5 K/UL (4.8-10.8)
--- NOTE | 2019-06-12 19:56 | NUR ---
ED Nurse Note: x ray at bedside
--- NOTE | 2019-06-12 20:03 | NUR ---
ED Nurse Note: pt is on HD and is anuric at this time. pt unable to provide urine. ERMD aware
[2019-06-12 20:41] LABS: ALANINE AMINOTRANSFERASE 17 U/L (12-78); ALBUMIN 3.3 G/DL (3.4-5.0); ALBUMIN/GLOBULIN RATIO 0.8 (1.0-2.7); ALKALINE PHOSPHATASE 187 U/L (46-116); ANION GAP 24 mmol/L (5-15); ASPARTATE AMINO TRANSFERASE 7 U/L (15-37); BILIRUBIN,TOTAL 0.7 MG/DL (0.2-1.0); BLOOD UREA NITROGEN 96 mg/dL (7-18); CALCIUM 6.7 MG/DL (8.5-10.1); CARBON DIOXIDE 10 MMOL/L (21-32); CHLORIDE 102 MMOL/L (98-107); CREATINE KINASE 211 U/L (26-308); CREATININE 16.6 MG/DL (0.55-1.30); PHOSPHORUS 14.3 MG/DL (2.5-4.9); POTASSIUM 5.8 MMOL/L (3.5-5.1); SODIUM 136 MMOL/L (136-145)
[2019-06-12] MEDS ORDERED: Insulin Human Regular 100units/ml 3ml IV ONE (21:15)
[2019-06-12] MEDS ORDERED: Calcium Gluconate 1gm/10ml vial IVP ONE (21:15)
--- NOTE | 2019-06-12 21:24 | NUR ---
ED Nurse Note: pt son's phone number ( Agustín camila ). [phone]
[2019-06-12 21:33] VITALS: BP 102/53
--- NOTE | 2019-06-12 22:27 | Diagnostic Imaging Report ---
Indications: Altered mental status Technique: Spiral acquisitions obtained through the brain. Angled axial and coronal 5 x 5 mm slices were reconstructed. Total dose length product 1379 mGycm. CTDI vol(s) 60 mGy. Dose reduction achieved using automated exposure control Comparison: 06/01/2019 Findings: No acute intracranial hemorrhage or edema. No mass effect nor midline shift. Normal schneider-white differentiation. Normal size ventricles and extra-axial CSF spaces. Intact calvarium. Visualized orbits and sinuses are unremarkable. There is some mastoid opacification bilaterally, evident previously. Previously demonstrated sinus disease is no longer evident Impression: Negative for acute intracranial bleed or mass effect Interim improvement of previously demonstrated sinus disease Minimal mastoid disease bilaterally The CT scanner at [facility] is accredited by the [employer] and the scans are performed using protocols designed to limit radiation exposure to as low as reasonably achievable to attain images of sufficient resolution adequate for diagnostic evaluation.
[2019-06-12 22:31] VITALS: BP 98/54
[2019-06-12] MEDS ORDERED: Docusate 100mg cap ORAL PRN (23:00)
[2019-06-12] MEDS ORDERED: Acetaminophen 500mg (ES) tab ORAL PRN (23:00)
[2019-06-12] MEDS ORDERED: Zolpidem 5mg tab ORAL PRN (23:00)
--- NOTE | 2019-06-12 23:25 | NUR ---
ED Nurse Note: pt was brought up to SDU room 234 accompanied by 2 RN with monitor box via gurney in stable condition. IV site to right AC 18g is intact. pt is able to verbalize needs. Belonging list signed.
[2019-06-12 23:30] VITALS: BP 84/52
--- NOTE | 2019-06-12 23:33 | NUR ---
NURSE NOTES: Received report from Rhina in ED. Patient presented with weakness, confusion, and dizziness. Pt history includes ERSD, hemodialysis, HTN, DM, depression, peripheral neuropathy and right small toe amputation. L forearm fistula present and positive for bruit and thrill. Pt on RM, is SR and has a R AC18g IV. IV remains patent, asymptomatic and intact. Pt reported to have received 10 u of regular insulin prior to transfer. Bedside blood glucose reveals blood sugar remains stable at 129mg/dL. Pt hypotensive (74/50) and hyperkalemic upon admission. Currently patients blood pressure is 90/74. Will continue to monitor. Will continue plan of care. Patient resting in bed. Bed is in lowest position, safety wheels engaged, call light within easy reach and bed alarm activated.
--- NOTE | 2019-06-13 00:29 | NUR ---
NURSE NOTES: Called per MD order for hemodialysis to be scheduled 06/13/19 Called [facility] and spoke with Susan
[2019-06-13 01:40] VITALS: BP 80/30
--- NOTE | 2019-06-13 01:41 | NUR ---
NURSE NOTES: Dr Fink paged. Patients blood pressure despite 500mL bolus in emergency and 500mL bolus per order in SDU remains hypotensive at 83/27. Will continue to monitor.
--- NOTE | 2019-06-13 01:44 | NUR ---
NURSE NOTES: Dr Fink returned phone call and made aware of blood pressure and boluses already received. Per Dr Fink no additional orders at this time. Patient to remain in SDU and continue to monitor patient as previously ordered. Will continue to monitor. Will continue to follow plan of care.
[2019-06-13 04:00] VITALS: BP 90/40
[2019-06-13 04:45] LABS: BASOPHILS % (AUTO) 0.9 % (0.0-2.0); EOSINOPHILS % (AUTO) 2.7 % (0.0-3.0); HEMATOCRIT 35.6 % (42.0-52.0); HEMOGLOBIN 11.3 G/DL (14.2-18.0); LYMPHOCYTES % (AUTO) 14.4 % (20.0-45.0); MEAN CORPUSCULAR VOLUME 91 FL (80-99); MONOCYTES % (AUTO) 7.4 % (1.0-10.0); NEUTROPHILS % (AUTO) 74.6 % (45.0-75.0); PLATELET COUNT 195 K/UL (150-450); RED BLOOD COUNT 3.91 M/UL (4.70-6.10); RED CELL DISTRIBUTION WIDTH 17.8 % (11.6-14.8); WHITE BLOOD COUNT 13.3 K/UL (4.8-10.8)
[2019-06-13 05:31] LABS: ANION GAP 24 mmol/L (5-15); BLOOD UREA NITROGEN 99 mg/dL (7-18); CALCIUM 6.5 MG/DL (8.5-10.1); CHLORIDE 103 MMOL/L (98-107); CREATININE 16.5 MG/DL (0.55-1.30); PHOSPHORUS 13.1 MG/DL (2.5-4.9); SODIUM 135 MMOL/L (136-145)
[2019-06-13 06:16] LABS: CARBON DIOXIDE 8 MMOL/L (21-32)
[2019-06-13] MEDS ORDERED: Heparin Sod 1000 units/ml 10ml IV PRN (06:30)
[2019-06-13] MEDS ORDERED: NovoLOG Insulin Flexpen SUBQ SCH (06:30)
--- NOTE | 2019-06-13 06:56 | NUR ---
NURSE NOTES: Dr Fink paged. regarding critical K value 7.0 and Co2 value 8.0 awaiting a call back Will continue to monitor.
--- NOTE | 2019-06-13 07:05 | NUR ---
HAND-OFF: Report given to AMINTA Chaney. No signs of cardiac or respiratory distress noted. Paged Dr Ruiz regarding critical lab values, endorsed to AMINTA Chaney. Day nurse aware of need to follow up.
--- NOTE | 2019-06-13 07:06 | NUR ---
NURSE NOTES: Received patient from AMINTA Gr. Patient sleeping at this time. patient reported to be alert to name, place, and time but confused to purpose. Patient drowsy at this time. Will asses mental status when he is more awake. patient blood pressure is low this morning. Will continue to monitor. Endorsed that Dr Varner is aware and does not want to order fluids or medication to increase blood pressure. Will follow up with Dr Varner if BP continues to be low. Patient showing sinus rhythm on the monitoring tech with heart rate of 78bpm. Patient on room air with clear lung wounds bilateral all lobes. Patient is on fluid restriction of 1000mL per 24hr. Patient skin intact. Patient has left forearm AV fistula that is intact and functional at this time. Patient has order for hemodialysis for today. Patient serum potassium is 7.0 this morning. Will follow up with Dr Varner and notify dialysis center that hemodialysis is urgent ans should be done as soon as possible. Patient has right antecubital peripheral IV 18gauge that is patent, asymptomatic, and saline locked at this time. Patient bed in low position with bed alarm on and call light in reach. Patient able to stand up and walk to the restroom. Urinal at the bedside if needed. Will continue to monitor.
--- NOTE | 2019-06-13 07:49 | NUR ---
NURSE NOTES: Paged Dr Varner at [phone]. Awaiting call back to notify him regarding serum potassium of 7.0 this morning and BP of 80/43.
--- NOTE | 2019-06-13 07:54 | NUR ---
NURSE NOTES: Left message with [facility] to have dialysis nurse call back with time they will be here to perform hemodialysis today as the patient has a serum potassium of 7.0 this morning. Awaiting call back.
[2019-06-13 08:00] VITALS: BP 80/42
[2019-06-13] MEDS ORDERED: Sodium Polystyrene Sulfonate 15gm Powder ORAL ONE (08:15)
--- NOTE | 2019-06-13 08:15 | NUR ---
NURSE NOTES: Received call back from Dr Varner. Notified him regarding serum potassium of 7.0 this morning and blood pressure of 80/43. No new orders received for blood pressure at this time. Received telephone order for 30g Kayexalate. Order read back, verified, and placed at this time.
[2019-06-13] MEDS ORDERED: Sensipar 30mg Tab ORAL SCH (09:00)
[2019-06-13] MEDS: Aspirin Baby 81mg ORAL SCH (09:27)
--- NOTE | 2019-06-13 09:31 | NUR ---
NURSE NOTES: retaining room cutter called Dr Varner and received order to hold Kayexalate for now and check serum potassium level post dialysis.
[2019-06-13] MEDS: Enoxaparin 30mg Inj SUBQ SCH (09:34)
--- NOTE | 2019-06-13 11:25 | NUR ---
NURSE NOTES: Paged Dr Varner at [phone]. Received call back at 1125. Doctor was asked what sliding scale he wants for the patient's AC and HS NovoLOG coverage. Received order for sensitive scale sliding scale for NovoLOG coverage. Order read back, verified, and relayed to pharmacy at this time. Spoke with pharmacist Valorie at [phone] who will change the order to sensitive scale.
[2019-06-13 11:47] LABS: HEMATOCRIT 31.6 % (42.0-52.0); HEMOGLOBIN 10.4 G/DL (14.2-18.0); MEAN CORPUSCULAR VOLUME 88 FL (80-99); PLATELET COUNT 196 K/UL (150-450); RED BLOOD COUNT 3.59 M/UL (4.70-6.10); RED CELL DISTRIBUTION WIDTH 16.9 % (11.6-14.8); WHITE BLOOD COUNT 8.8 K/UL (4.8-10.8)
[2019-06-13 11:56] LABS: ANION GAP 21 mmol/L (5-15); BLOOD UREA NITROGEN 49 mg/dL (7-18); CALCIUM 7.4 MG/DL (8.5-10.1); CARBON DIOXIDE 18 MMOL/L (21-32); CHLORIDE 100 MMOL/L (98-107); CREATININE 7.9 MG/DL (0.55-1.30); SODIUM 139 MMOL/L (136-145)
[2019-06-13] MEDS: Insulin NovoLOG Flexpen S/S (insulin sensitive) SUBQ SCH ×3 (11:56→21:00)
[2019-06-13 12:00] VITALS: BP 108/53
--- NOTE | 2019-06-13 12:00 | NUR ---
NURSE NOTES: patient blood pressure now 108/53. Patient dialysis complete. 3L output. Patient stable at this time. Will assess blood sugar at this time. Bed in low position with bed alarm on and call light in reach. Patient denies distress. Patient denies pain. Patient sleeping at this time. Will continue to monitor.
[2019-06-13] MEDS ORDERED: Loperamide 2mg cap ORAL PRN (13:30)
[2019-06-13] MEDS: Midodrine 10mg tab ORAL SCH ×2 (13:48→17:27)
--- NOTE | 2019-06-13 14:57 | NUR ---
NURSE NOTES: Called Dr Varner and notified him that patient is vomiting and zofran has not worked for the patient. No new orders received. Will continue to monitor patient and administer zofran as ordered.
[2019-06-13 16:00] VITALS: BP 115/63
--- NOTE | 2019-06-13 16:00 | NUR ---
NURSE NOTES: Patient continues to have nausea. BP 115/63. Will continue to monitor. Will administer zofran per order. Patient bed in low position with bed alarm on and call light in reach.
--- NOTE | 2019-06-13 16:06 | Diagnostic Imaging Report ---
Indication: Shortness of breath Technique: One view of the chest Comparison: 06/01/2019 Findings: No acute infiltrates, effusions, or congestion. Tortuous calcified aorta. Normal heart size. Upper mediastinum unremarkable. No significant change Impression: No acute process.
--- NOTE | 2019-06-13 17:50 | Cardiology Report ---
APPROVED REPORT EKG Measurement Heart [id number] Normal sinus rhythm Nonspecific ST abnormality Abnormal QRS-T angle, consider primary T wave abnormality Abnormal ECG
--- NOTE | 2019-06-13 19:00 | History and Physical Report ---
DATE OF ADMISSION: 06/12/2019 CHIEF COMPLAINT/REASON FOR HOSPITALIZATION: The patient admitted with azotemia, nausea, weakness, and diarrhea. HISTORY OF PRESENT ILLNESS: The patient has end-stage renal disease, on dialysis, and is a patient of Dr. Varner for whom I am covering. He states he has had diarrhea chronic for 2 years and has a prior diagnosis of diabetic gastroparesis. He has missed dialysis for several times in a row and presents with severe weakness, metabolic acidosis with a CO2 of 10 and repeat 8, hyperkalemia up to 7.0, and azotemia. He has severe secondary hyperparathyroidism, history of partial amputation of right foot, diabetic retinopathy and neuropathy, orthostatic hypotension, and history of noncompliance. HOME MEDICATIONS: Include insulin short-acting 5 units t.i.d. plus Lantus 3 units at bedtime, midodrine b.i.d. uncertain dose, calcium 4 pills 4 times a day, and gabapentin 200 mg b.i.d. The other medicines listed which he could not confirm include cinacalcet, DSS, Lexapro, labetalol, Creon, ondansetron, sevelamer, and zolpidem. HABITS: He is a nonsmoker. He was a fagephhu-[id number] beer drinker years ago socially. Lives with family. SURGERIES: Include AV fistula of left arm, gallbladder, eye surgery, retinal detachment, and amputation of toes on the right foot. SYSTEM REVIEW: HEAD, EYES, EARS, NOSE, THROAT: He has decreased visual acuity, diabetic retinopathy, prior retinal detachment, and mild decreased hearing. ENDOCRINE: Diabetes as above. No known thyroid disease. PULMONARY: No asthma, TB, or chronic cough. CARDIAC: History of severe orthostatic hypotension. No TX or definite angina. GASTROINTESTINAL: Recurrent diarrhea as above. He has had prior evaluations. GENITOURINARY: He makes little urine. NEUROLOGIC: History of diabetic neuropathy and numbness and tingling in the toes. PHYSICAL EXAMINATION: GENERAL: The patient is seen completing his dialysis. VITAL SIGNS: Temperature 98, pulse 77, respirations 19, and blood pressure 80/42. HEAD, EYES, EARS, NOSE, THROAT: Sclerae are nonicteric. Ocular motions are intact in all directions. Oral mucosa is slightly dry. NECK: No adenopathy. LUNGS: Clear. HEART: Regular rhythm. No murmur. ABDOMEN: Soft. I am unable to feel liver or spleen. EXTREMITIES: No edema, cyanosis, or clubbing. He has amputation of the right little toe. NEUROLOGIC: He is alert and responsive. Ocular motions are intact in all directions. Smile is symmetric. Tongue is midline. He moves all extremities. IMPRESSION: 1. End-stage renal disease. 2. History of noncompliance. 3. Metabolic acidosis. 4. Hyperkalemia. 5. Chronic diarrhea, likely related to diabetic enteropathy and medications. 6. Insulin-dependent diabetes with retinopathy and neuropathy. 7. Failure to thrive. PLAN: All laboratories are reviewed. The patient will get serial dialysis. We will put him on a GI regimen and monitor his clinical course. Ralph Cochran M.D. DR: Librado JOB#: [id number] CC:
--- NOTE | 2019-06-13 19:20 | NUR ---
HAND-OFF: Report given to AMINTA Blank. Patient Sleeping at this time. Dialysis scheduled for tomorrow. [facility] called at this time. left message with Migel. Endorsed to follow up.
--- NOTE | 2019-06-13 19:30 | NUR ---
NURSE NOTES: Received report from AMINTA Chaney. Pt is sleeping on the bed and no sign of acute distress noted. IV site intact and no sign of infiltration noted. On Tele monitor with SR with HR: 79's. Pt has AV shunt on Lt. forearm noted bruit and thrills. Pt scheduled hemodialysis tomorrow and previous nurse called to [facility] hemodialysis center. Placed fall precaution. Will continue to monitor any change of condition.
[2019-06-13 20:00] VITALS: BP 145/66
[2019-06-13] MEDS ORDERED: Heparin Sod 1000 units/ml 10ml IV ONE (23:00)
[2019-06-14] VITALS: BP 107/51
[2019-06-14 04:00] VITALS: BP 105/54
[2019-06-14 05:29] LABS: BASOPHILS % (AUTO) 1.6 % (0.0-2.0); EOSINOPHILS % (AUTO) 4.1 % (0.0-3.0); HEMATOCRIT 30.2 % (42.0-52.0); HEMOGLOBIN 9.8 G/DL (14.2-18.0); LYMPHOCYTES % (AUTO) 17.2 % (20.0-45.0); MEAN CORPUSCULAR VOLUME 89 FL (80-99); MONOCYTES % (AUTO) 7.4 % (1.0-10.0); NEUTROPHILS % (AUTO) 69.8 % (45.0-75.0); PLATELET COUNT 215 K/UL (150-450); RED BLOOD COUNT 3.39 M/UL (4.70-6.10); RED CELL DISTRIBUTION WIDTH 17.1 % (11.6-14.8); WHITE BLOOD COUNT 10.5 K/UL (4.8-10.8)
[2019-06-14 05:58] LABS: ANION GAP 17 mmol/L (5-15); BLOOD UREA NITROGEN 68 mg/dL (7-18); CALCIUM 6.2 MG/DL (8.5-10.1); CARBON DIOXIDE 21 MMOL/L (21-32); CHLORIDE 100 MMOL/L (98-107); CREATININE 12.1 MG/DL (0.55-1.30); PHOSPHORUS 10.7 MG/DL (2.5-4.9); POTASSIUM 4.6 MMOL/L (3.5-5.1); SODIUM 138 MMOL/L (136-145)
[2019-06-14] MEDS: Insulin NovoLOG Flexpen S/S (insulin sensitive) SUBQ SCH ×3 (06:30→16:30)
--- NOTE | 2019-06-14 07:27 | NUR ---
HAND-OFF: Report given to AMINTA Powell. Pt is resting on the bed and no sign of acute distress noted. Denied pain and nausea/vomiting.
--- NOTE | 2019-06-14 07:28 | NUR ---
NURSE NOTES: Received patient in bed. Awake, alert, verbal. Able to make some needs known. Educated to use the call light. Contact isolation observed. Will continue plan of care.
[2019-06-14 08:00] VITALS: BP 93/48
[2019-06-14] MEDS: Midodrine 10mg tab ORAL SCH ×4 (08:24→17:31)
[2019-06-14] MEDS: Enoxaparin 30mg Inj SUBQ SCH (09:00)
[2019-06-14] MEDS: Aspirin Baby 81mg ORAL SCH (09:00)
[2019-06-14] MEDS ORDERED: Heparin Sod 1000 units/ml 10ml IV PRN ×2 (09:00→18:15)
--- NOTE | 2019-06-14 09:00 | NUR ---
NURSE NOTES: Patient tried to get out of bed. Bed alarm heard and saw patient trying to get up. Patient refused to use call light. Informed patient to use it so staff can assist him.
[2019-06-14 12:00] VITALS: BP 107/61
--- NOTE | 2019-06-14 12:00 | NUR ---
NURSE NOTES: Dialysis nurse from [facility] at bedside.
--- NOTE | 2019-06-14 12:03 | NUR ---
NURSE NOTES: PRN order zofran given for complaints of vomiting.
--- NOTE | 2019-06-14 13:30 | NUR ---
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 97.0 HR 71 RR 18 B/P 74/50 WBC 13.5 K 5.8 ALK PHOS 187 BNP 9047 CXR= NO ACUTE PROCESS IS: IV BOLUS NS X 500ML D50 IV CALCIUM GLUCONATE IV INSULIN IV ADMITTED TO STEP DOWN STEP DOWN STATUS DCP RETURN HOME
[2019-06-14 16:00] VITALS: BP 143/67
[2019-06-14] MEDS ORDERED: NS 275ml ONE (17:47)
--- NOTE | 2019-06-14 18:06 | Nephrology Progress Note ---
Assessment/Plan Problem List: (1) vomiting (2) Azotemia (3) Metabolic acidosis (4) DM (diabetes mellitus) (5) ESRD (end stage renal disease) on dialysis (6) Gastroparesis diabeticorum Plan continue diabetic manage, HD, GI meds Subjective Constitutional: Reports: weakness HEENT: Reports: no symptoms Neurologic/Psychiatric: Reports: pre-existing deficit Subjective nausea emesis diarrhea Objective Objective Last 24 Hour Vital Signs Date Time Temp Pulse Resp B/P (MAP) Pulse Ox O2 Delivery O2 Flow Rate FiO2 06/14/19 16:00 98.7 86 20 143/67 (92) 94 06/14/19 15:31 86 06/14/19 12:00 98.1 72 19 107/61 (76) 95 06/14/19 11:45 71 06/14/19 09:00 Room Air 06/14/19 08:00 99.5 75 20 93/48 (63) 94 06/14/19 07:43 75 06/14/19 04:00 75 06/14/19 04:00 Room Air 06/14/19 04:00 98.7 74 20 105/54 (71) 96 06/14/19 00:00 99.0 79 20 107/51 (69) 96 06/14/19 00:00 Room Air 06/14/19 00:00 77 06/13/19 21:00 79 06/13/19 20:00 98.2 78 20 145/66 (92) 96 06/13/19 20:00 Room Air Intake and Output 06/13/19 06/14/19 19:00 07:00 Intake Total 120 ml Output Total 3000 ml Balance -2880 ml Intake Oral 120 ml Output Hemodialysis UF 3000 ml Laboratory Tests 06/14/19 04:30: White Blood Count 10.5, Red Blood Count 3.39L, Hemoglobin 9.8L, Hematocrit 30.2L , Mean Corpuscular Volume 89, Mean Corpuscular Hemoglobin 28.9, Mean Corpuscular Hemoglobin Concent 32.5, Red Cell Distribution Width 17.1H, Platelet Count 215, Mean Platelet Volume 6.5, Neutrophils (%) (Auto) 69.8, Lymphocytes (%) (Auto) 17.2L, Monocytes (%) (Auto) 7.4, Eosinophils (%) (Auto) 4.1H, Basophils (%) (Auto) 1.6, Sodium Level 138, Potassium Level 4.6#, Chloride Level 100, Carbon Dioxide Level 21, Anion Gap 17H, Blood Urea Nitrogen 68H, Creatinine 12.1#H, Estimat Glomerular Filtration Rate 4.5, Glucose Level 119H, Calcium Level 6.2L, Phosphorus Level 10.7H Height (Feet): 5 Height (Inches): 5.00 Weight (Pounds): 127 General Appearance: no apparent distress EENT: normal ENT inspection Neck: normal alignment, supple Cardiovascular: regular rhythm Respiratory/Chest: lungs clear Abdomen: non tender, soft Extremities: no edema Neurologic: pot puller II-XII grossly normal Ralph Cochran MD Jun 14, 2019 18:06
--- NOTE | 2019-06-14 18:43 | NUR ---
NURSE NOTES: Spoke to Dr. Cochran via telephone regarding patient wanted to go home now. And willing to sign AMA. MD said that patient is not ready for discharge, but MD can't hold him against his will.
--- NOTE | 2019-06-14 19:00 | NUR ---
AMA: SEE AMA FORM. Patient left with niece (Kadie Becker). Next of kin David Moe notified via telephone at [phone]. Belongings checked and signed. Patient remains room air. craft recruiter removed. IV line removed. Name wrist band removed. Charge nurse, House supp aware.
--- NOTE | 2019-06-15 08:31 | Discharge Summary ---
Discharge Summary Discharge Summary _ DATE OF ADMISSION: 06/12/2019 DATE OF DISCHARGE: 06/13/2019 Patient left AGAINST MEDICAL ADVICE REASON FOR ADMISSION: 48-year-old male with past medical history of end-stage renal disease, on hemodialysis, hypertension, depression, presented for evaluation due to confusion and weakness. Patient was brought in by family member. According to family member, patient was staying in the bed , complaining of dizziness and then progressively became more confused and altered. Apparently he did not recognize his family member at home. Patient reported headache and lightheadedness. Patient denied chest pain. No cough , no recent fevers. No abdominal pain, no vomiting, or diarrhea. Last dialysis was on 06/10. Patient had a long history of noncompliance with prior hospital admissions. Upon evaluation blood pressure was very low 74/50. Laboratory work-up revealed leukocytosis WBC 13.5, hemoglobin 10.7, hematocrit 32.1, platelet count 189. Sodium 136, potassium 5.8. BUN 96, creatinine 16.6. Lactic acid 0.8. Stable LFT. Troponin negative. pro BNP 9047. EKG revealed sinus rhythm , slight peaked appearance of T waves in precordial leads. Albumin 3.3. Chest x-ray demonstrated no acute cardiopulmonary pathology. CT of the head revealed no evidence of acute intracranial bleeding or mass- effect. Blood pressure improved after small fluid boluses provided. Patient subsequently admitted to stepdown unit for further management. HOSPITAL COURSE: Patient admitted to direct observational unit. Hemodialysis ordered and provided with close monitoring of volumes , renal parameters and electrolytes. Blood cultures were negative. Blood pressure was supported with midodrine. Imodium provided for chronic diarrhea as needed. Blood sugar was managed with sliding scale of insulin. Antiplatelet therapy with aspirin continued. DVT prophylaxis with Lovenox provided. Leukocytosis resolved in 2 days. Hemoglobin and hematocrit remained at baseline . Hyperkalemia was treated and prior to signing AMA , potassium 4.6. Patient decided to leave AGAINST MEDICAL ADVICE. The risks and consequences of signing AGAINST MEDICAL ADVICE were discussed with patient in detail. Patient verbalized understanding, nevertheless signed AMA form and left. 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 I was not involved in the patient's management. Anita Brady NP Jun 15, 2019 08:31
== END 2019-06-14 19:00 | disposition left against medical advice (07) | DRG 640 ==
LOC: EMR 19:30 → EDBEDREQ 20:34 → 2W 21:27 → EDBEDREQ 22:59
DX: E87.5 Hyperkalemia (principal); N18.6 End stage renal disease; G93.40 Encephalopathy, unspecified; N25.81 Secondary hyperparathyroidism of renal origin; Z91.15 Patient's noncompliance with renal dialysis; E87.2 Acidosis; Z89.431 Acquired absence of right foot; E11.40 Type 2 diabetes mellitus with diabetic neuropathy, unspecified; E13.319 Other specified diabetes mellitus with unspecified diabetic retinopathy without macular edema; K63.89 Other specified diseases of intestine; K52.89 Other specified noninfective gastroenteritis and colitis; Z79.4 Long term (current) use of insulin; R62.7 Adult failure to thrive; E11.43 Type 2 diabetes mellitus with diabetic autonomic (poly)neuropathy; K31.84 Gastroparesis
CPT/HCPCS: 36415; 70450; 71045; 80048; 80053; 82550; 82553; 82962; 83605; 83735; 83880; 84100; 84484; 85007; 85025; 86850; 86900; 86901; 87040; 87081; 93005; 96374; 96375; 99291; J1815; J2405; J7030